=== PATIENT | male | born 1945 | race Caucasian/White ===

== ENCOUNTER → 2016-05-30 | Outpatient (CLI) | payer MEDICARE, OTHER ==
--- NOTE | 2016-05-30 11:34 | FL ---
Modified barium swallow. HISTORY: Dysphagia. Modified barium swallow was performed with the department of speech pathology. The patient was prese nted with various consistencies of barium. There is no evidence for aspiration. Mild single episode of transient penetration with thin liquid ba rium. Full report is to follow from the department of speech pathology. Impression: No evidence for aspiration.
== END | disposition home or self-care (01) ==
LOC: RADFLMAIN 10:54
PROVIDERS: ATTEND Otolaryngology
DX: R13.10 Dysphagia, unspecified (principal)
CPT/HCPCS: 74230

== ENCOUNTER → 2016-06-19 | Outpatient (CLI) | payer MEDICARE, OTHER | END | disposition home or self-care (01) | LOC: PTMAIN 12:54 | PROVIDERS: ATTEND Otolaryngology | DX: J38.01 Paralysis of vocal cords and larynx, unilateral (principal) | CPT/HCPCS: 31579 ==

== ENCOUNTER 2016-08-09 10:06 | Day surgery (SDC) | payer MEDICARE, OTHER ==
[2016-08-07 17:13] VITALS: BMI 33.0
[~2016-08-09 10:06] MED LIST: DEXAMETHASONE SOD PHOSPHATE 10 MG/ML 1 ML VIAL IV ONE; DEXAMETHASONE SOD PHOSPHATE 4 MG/ML 1 ML VIAL IV ONE; FAMOTIDINE 20 MG/2 ML VIAL IV ONE; HYDROmorphone 1 MG/ML 1 ML SYRINGE IVP PRN; LACTATED RINGERS 1,000 ML IV SCH; LIDOCAINE 1% 20 ML VIAL (10MG/ML) FOR IV START INTRADERMA PRN; MIDAZOLAM 2 MG/2 ML VIAL IV PRN; ONDANSETRON 4 MG/2 ML VIAL IVP ONE; Pre Op ABX Message 1 EACH MISC MISCELLANE ONE; SCOPOLAMINE 1.5MG/72HR PATCH TRANSDERM ONE
[2016-08-09 12:55] LABS: Basophils # (A) 0.1 k/uL (0-0.2); Basophils % (A) 1 %; CH 32.8; CHCM 34.5; Eosinophils # (A) 0.1 k/uL (0-0.7); Eosinophils % (A) 1 %; HCT 45.2 % (39.0-53.0); HDW 2.63; HGB 15.3 gm/dL (13.0-17.5); Luc # (Auto) 0.14; Luc % (Auto) 2; Lymphocytes # (A) 0.6 k/uL (1.0-4.8); Lymphocytes % (A) 6 %; MCH 32.2 pg (25.0-35.0); MCHC 33.7 g/dL (31.0-37.0); MCV 95.5 fL (80.0-100.0); Mean Platelet Volume 7.8; Monocytes # (A) 0.5 k/uL (0-1.0); Monocytes % (A) 5 %; Neutrophils # (A) 8.1 k/uL (1.3-7.7); Neutrophils % (A) 86 %; RBC 4.74 m/uL (4.30-5.90); RDW 15.6 % (11.5-15.5); WBC 9.4 k/uL (3.8-10.6); WBC (Perox) 8.66
[2016-08-09 13:15] LABS: Anion Gap 9 mmol/L; Blood Urea Nitrogen 22 mg/dL (9-20); Calcium 9.3 mg/dL (8.4-10.2); Carbon Dioxide 28 mmol/L (22-30); Chloride 102 mmol/L (98-107); Glucose 100 mg/dL (74-99); Non-African American GFR(MDRD) >60 (>60 ml/min/1.73 sqM); Potassium 4.2 mmol/L (3.5-5.1); Sodium 139 mmol/L (137-145)
[2016-08-09] MEDS ORDERED: DEXAMETHASONE SOD PHOS (MDV) 100 MG/10 ML VIAL ONE (13:22)
[2016-08-09] MEDS ORDERED: PROPOFOL 10 MG/ML 20 ML VIAL IV ONE (13:22)
[2016-08-09] MEDS ORDERED: SUCCINYLCHOLINE CHLORIDE 100 MG/5 ML SYR IV ONE (13:22)
[2016-08-09] MEDS ORDERED: LIDOCAINE 1% INJ 10MG/ML (20 ML MDV) ONE (13:22)
[2016-08-09] MEDS ORDERED: MIDAZOLAM 2 MG/2 ML VIAL ONE (13:22)
[2016-08-09] MEDS ORDERED: fentaNYL (PF) 50 MCG/ML 2 ML AMP ONE (13:22)
--- NOTE | 2016-08-09 13:52 | P.OP ---
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 He completed radiotherapy in January 2015. He's had some ongoing hoarseness and although radiologically appears improved he's had some minimal leukoplakia intermittently on the left vocal cord. Operative Findings: There was some mild diffuse white exudate on the left true vocal cord and ventricle which was debrided. There was also some irregularity of the mucosa with erythema of the left true vocal cord and ventricle diffusely and therefore this was debrided and biopsied. Description of Procedure: The patient was brought in the operative suite and placed in a supine position. The patient underwent induction of general anesthesia with oral endotracheal intubation without difficulty. The patient was prepped and draped in the usual aseptic fashion. The tooth guard was placed and direct laryngoscopy was performed with systematic evaluation of the base of tongue vallecula both piriform sinuses post cricoid area and endolarynx. With the larynx in good visualization the laryngoscope was placed in suspension and the microscope was brought into position to evaluate the vocal cords. The white exudate overlying the left true vocal cord was first debrided with suction. Deep to this was some superficial appearing erythematous irregular mucosa in the ventricle and overlying the left true vocal cord and this was debrided with microcup forceps multiple small biopsies taken. Hemostasis was gained spontaneously. The patient was then allowed to emerge from general anesthesia having tolerated procedure well was extended the operating suite and transferred to postop recovery area in satisfactory condition.
[2016-08-09 14:08] VITALS: TEMP 97.2
[2016-08-09 14:36] VITALS: RESP 18
[2016-08-09 14:51] VITALS: BP 153/70; PULSE 63
== END 2016-08-09 15:07 | disposition home or self-care (01) ==
LOC: OR 10:06
PROVIDERS: ATTEND Otolaryngology
DX: J38.3 Other diseases of vocal cords (principal); B37.89 Other sites of candidiasis; Z85.21 Personal history of malignant neoplasm of larynx; K21.9 Gastro-esophageal reflux disease without esophagitis; I25.10 Atherosclerotic heart disease of native coronary artery without angina pectoris; I50.9 Heart failure, unspecified; I11.0 Hypertensive heart disease with heart failure; Z87.891 Personal history of nicotine dependence; J43.8 Other emphysema; E78.5 Hyperlipidemia, unspecified; H91.8X9 Other specified hearing loss, unspecified ear; E78.00 Pure hypercholesterolemia, unspecified; Z79.891 Long term (current) use of opiate analgesic; Z79.51 Long term (current) use of inhaled steroids; Z79.52 Long term (current) use of systemic steroids; Z79.899 Other long term (current) drug therapy; Z79.2 Long term (current) use of antibiotics; Z88.1 Allergy status to other antibiotic agents
CPT/HCPCS: 31535; 93005; 88305; 80048; 85025; J2250; J2001; J3010; J1100; J0330; J2704

== ENCOUNTER → 2017-07-18 | Outpatient (CLI) | payer MEDICARE, OTHER ==
[2017-07-18 16:04] LABS: HCT 41.5 % (39.0-53.0); HGB 14.2 gm/dL (13.0-17.5); MCH 32.1 pg (25.0-35.0); MCHC 34.2 g/dL (31.0-37.0); MCV 93.9 fL (80.0-100.0); Mean Platelet Volume 7.5; Platelet Count 161 k/uL (150-450); RBC 4.42 m/uL (4.30-5.90); RDW 15.6 % (11.5-15.5); WBC 10.8 k/uL (3.8-10.6)
[2017-07-18 16:19] LABS: Albumin 4.1 g/dL (3.5-5.0); Potassium 3.7 mmol/L (3.5-5.1); Total Bilirubin 0.9 mg/dL (0.2-1.3); Total Protein 6.7 g/dL (6.3-8.2)
== END ==
LOC: LABWHC1 15:15
PROVIDERS: ATTEND Thoracic Surgery (Cardiothoracic Vascular Surgery)
DX: E63.8 Other specified nutritional deficiencies (principal)
CPT/HCPCS: 36415; 80053; 84134; 85027

== ENCOUNTER 2017-07-30 07:17 | Day surgery (SDC) | payer MEDICARE, OTHER ==
[~2017-07-30 07:17] MED LIST changes: -DEXAMETHASONE SOD PHOSPHATE 4 MG/ML 1 ML VIAL IV ONE; -FAMOTIDINE 20 MG/2 ML VIAL IV ONE; +HYDROmorphone 0.5 MG/0.5 ML SYRINGE IVP PRN; -HYDROmorphone 1 MG/ML 1 ML SYRINGE IVP PRN; -LIDOCAINE 1% 20 ML VIAL (10MG/ML) FOR IV START INTRADERMA PRN; -MIDAZOLAM 2 MG/2 ML VIAL IV PRN; -Pre Op ABX Message 1 EACH MISC MISCELLANE ONE; -SCOPOLAMINE 1.5MG/72HR PATCH TRANSDERM ONE
[2017-07-30 07:45] VITALS: RESP 16; TEMP 98.1
[2017-07-30] MEDS ORDERED: LIDOCAINE 1% 20 ML VIAL (10MG/ML) FOR IV START INTRADERMA ONE (07:51)
[2017-07-30 07:52] LABS: Glucose,Whole Blood 98 mg/dL (75-99)
[2017-07-30] MEDS: ceFAZolin IN SWFI 2 GM/20 ML SYRINGE IVP ONE ×2 (08:23→08:37)
[2017-07-30] MEDS ORDERED: LIDOCAINE 1% INJ 10MG/ML (20 ML MDV) ONE (08:35)
[2017-07-30] MEDS ORDERED: PROPOFOL 10 MG/ML 20 ML VIAL IV ONE (08:35)
[2017-07-30] MEDS ORDERED: MIDAZOLAM 2 MG/2 ML VIAL ONE (08:35)
--- NOTE | 2017-07-30 09:07 | P.PCN ---
Date of Procedure: 07/30/17 Preoperative Diagnosis: Neuropathic ulcer right second toe Postoperative Diagnosis: Same Procedure(s) Performed: Amputation right second toe through proximal phalanx Anesthesia: MAC Surgeon: Shant Nicolas Estimated Blood Loss (ml): 20 Pathology: other (Second toe for cultures only) Condition: stable Disposition: PACU Indications for Procedure: Patient has an ulcer on the plantar aspect of his right second toe which exposes a large portion of the middle phalanx Operative Findings: Proximal tissues appeared healthy and with good blood supply. Description of Procedure: With the patient spine position, under benefit of IV sedation, we prepped and draped sterile fashion. We left a fairly substantial dorsal flap on the toe but excise the ulcer which was on the proximal plantar aspect of the second toe. We divided the proximal phalanx at this line with a bone cutter and excised the toe. Hemostasis was accomplished with electrocautery. We irrigated with saline. We took the bone well above the soft tissue line. After irrigated with saline we fashioned the flap to fit the incision. The incision was closed with 4-0 nylon. Sterile dressings were applied. The patient tolerated the procedure well and was taken recovery area in stable condition.
[2017-07-30 09:27] VITALS: BP 145/75; PULSE 74
== END 2017-07-30 09:51 | disposition home or self-care (01) ==
LOC: OR 07:17
PROVIDERS: ATTEND Thoracic Surgery (Cardiothoracic Vascular Surgery)
DX: L97.514 Non-pressure chronic ulcer of other part of right foot with necrosis of bone (principal); M86.9 Osteomyelitis, unspecified; B95.62 Methicillin resistant Staphylococcus aureus infection as the cause of diseases classified elsewhere; G62.9 Polyneuropathy, unspecified; J44.9 Chronic obstructive pulmonary disease, unspecified; I11.0 Hypertensive heart disease with heart failure; I50.9 Heart failure, unspecified; K21.9 Gastro-esophageal reflux disease without esophagitis; H91.90 Unspecified hearing loss, unspecified ear; E78.5 Hyperlipidemia, unspecified; M19.90 Unspecified osteoarthritis, unspecified site; G47.33 Obstructive sleep apnea (adult) (pediatric); N40.0 Benign prostatic hyperplasia without lower urinary tract symptoms; M10.9 Gout, unspecified; I83.90 Asymptomatic varicose veins of unspecified lower extremity; Z99.89 Dependence on other enabling machines and devices; Z96.652 Presence of left artificial knee joint; Z79.51 Long term (current) use of inhaled steroids; Z79.52 Long term (current) use of systemic steroids; Z79.899 Other long term (current) drug therapy; Z85.21 Personal history of malignant neoplasm of larynx; Z92.3 Personal history of irradiation; Z87.891 Personal history of nicotine dependence; Z88.1 Allergy status to other antibiotic agents
CPT/HCPCS: 88305; 88311; 28825; J2250; J1100; J2405; J2001; J2704; J0690

== ENCOUNTER 2017-09-19 10:58 | Inpatient (IN) | payer MEDICARE, OTHER ==
[2017-09-19] MEDS ORDERED: SODIUM CHLORIDE 0.9% 1,000 ML IV STA (11:12)
[2017-09-19] MEDS ORDERED: MORPHINE SULFATE 4 MG/ML SYRINGE IV STA (11:12)
--- NOTE | 2017-09-19 11:20 | ED ---
General Adult HPI - General Chief complaint: Weakness Stated complaint: Weakness Time Seen by Provider: 09/19/17 11:01 Source: patient, EMS, RN notes reviewed Mode of arrival: EMS Limitations: no limitations - History of Present Illness Initial comments: Patient is a pleasant 71-year-old male presenting to the emergency department with weakness. Patient states he was unable to ambulate today. Patient is unclear why. Patient feels weak all over, more so on the legs. Patient has had right hip discomfort over the past couple of weeks. Patient is planning to have x-rays done of his right hip. Discomfort is positional. No fevers. Patient also has chronic lower back pain and chronic neck pain and chronic right knee problems. Patient has not noticed any isolated area of weakness. Patient does not feel confused. - Related Data Home Medications Medication Instructions Recorded Confirmed Albuterol Sulfate [Proventil Hfa] 3 puff INHALATION RT-BID 09/16/14 09/19/17 Allopurinol [Zyloprim] 300 mg PO QAM 09/16/14 09/19/17 Atorvastatin [Lipitor] 10 mg PO HS 09/16/14 09/19/17 B Complex-Vit C-Vit E-Zinc [Z-Bec] 1 tab PO DAILY 09/16/14 09/19/17 Furosemide [Lasix] 40 mg PO BID 09/16/14 09/19/17 Spironolactone [Aldactone] 25 mg PO QAM 09/16/14 09/19/17 Tamsulosin HCl [Flomax] 0.4 mg PO HS 09/16/14 09/19/17 Temazepam [Restoril] 30 mg PO HS PRN 09/16/14 09/19/17 amLODIPine [Norvasc] 5 mg PO QAM 09/16/14 09/19/17 hydrALAZINE HCL [Apresoline] 100 mg PO TID 09/16/14 09/19/17 predniSONE 5 mg PO QAM 09/16/14 09/19/17 Omeprazole [PriLOSEC] 40 mg PO QAM 08/07/16 09/19/17 Budesonide/Formoterol Fumarate 1 puff INHALATION RT-BID 09/19/17 09/19/17 [Symbicort 160-4.5 Mcg Inhaler] Metolazone [Zaroxolyn] 5 mg PO DAILY PRN 09/19/17 09/19/17 Tiotropium 18 Mcg/Puff [Spiriva] 1 cap INHALATION RT-DAILY 09/19/17 09/19/17 diphenhydrAMINE [Benadryl] 50 mg PO HS 09/19/17 09/19/17 Allergies Allergy/AdvReac Type Severity Reaction Status Date / Time tobramycin Allergy Unknown Rash/Hives, Verified 09/19/17 11:17 Itching Review of Systems ROS Statement: Those systems with pertinent positive or pertinent negative responses have been documented in the HPI. ROS Other: All systems not noted in ROS Statement are negative. Constitutional: Denies: fever Eyes: Denies: eye pain ENT: Denies: ear pain Respiratory: Denies: dyspnea Cardiovascular: Denies: chest pain Endocrine: Denies: fatigue Gastrointestinal: Denies: abdominal pain Genitourinary: Denies: dysuria Musculoskeletal: Reports: as per HPI, back pain (Chronic), arthralgia Skin: Denies: rash Neurological: Reports: weakness (Generalized), abnormal gait. Denies: headache , confusion Past Medical History Past Medical History: Cancer, Heart Failure, COPD, GERD/Reflux, Hearing Disorder / Deafness, Hyperlipidemia, Hypertension, Osteoarthritis (OA), Skin Disorder, Sleep Apnea/CPAP/BIPAP Additional Past Medical History / Comment(s): CURRENT: PATIENT AT [facility] FOR TX OF WOUND ON RIGHT SECOND TOE ([facility]) AND ALSO HAS BEEN TO DR. CELIS FOR LOWER BACK PAIN WITH WEAKNESS IN LEGS (PER SPOUSE). USES WALKER AND CANE. C-PAP MACHINE. (C-DIFF AFTER RUPTURED APPENDIX). ENLARGED PROSTATE. GOUT. BRUISES ON ARMS, BRUISES EASILY. VOICE HOARSE; HX CA VOCAL CORD 2014; HAD 30 RADIATION TX. VARICOSE VEINS, wound 2nd right toe History of Any Multi-Drug Resistant Organisms: MRSA Date of last positivie culture/infection: 05/31/17 MDRO Source:: RIGHT SECOND TOE Past Surgical History: Appendectomy, Joint Replacement, Orthopedic Surgery Additional Past Surgical History / Comment(s): RUPTURED APPENDIX. RT ROTATOR CUFF REPAIR, LT TOTAL KNEE. HX VOCAL CORD BIOPSY. Past Anesthesia/Blood Transfusion Reactions: No Reported Reaction Past Psychological History: No Psychological Hx Reported Smoking Status: Former smoker Past Alcohol Use History: Occasional Past Drug Use History: None Reported - Past Family History Father Family Medical History: Cancer Additional Family Medical History / Comment(s): STOMACH CANCER General Exam Limitations: no limitations General appearance: alert, in no apparent distress Head exam: Present: atraumatic Eye exam: Present: normal appearance ENT exam: Present: normal oropharynx Neck exam: Present: normal inspection Respiratory exam: Present: normal lung sounds bilaterally Cardiovascular Exam: Present: regular rate, normal rhythm GI/Abdominal exam: Present: soft. Absent: tenderness Extremities exam: Present: tenderness (Right anterior hip), pedal edema, other ( Some discomfort with range of motion of the right hip. Cap refill less than 2 seconds bilateral.) Back exam: Present: normal inspection. Absent: vertebral tenderness Neurological exam: Present: alert, oriented X3, other (Difficulty lifting right leg off the bed however this is complicated by right hip discomfort.) Expanded Sensory exam: Lower Extremity Light Touch: Normal Motor strength exam: RUE: 5, LUE: 5, RLE: 3 (Complicated by right hip discomfort ), LLE: 5 Eye Response: (4) open spontaneously Motor Response: (6) obeys commands Verbal Response: (5) oriented Psychiatric exam: Present: normal affect, normal mood Skin exam: Present: normal color Course Vital Signs 09/19/17 09/19/17 09/19/17 11:12 12:06 13:35 Temperature 97.9 F Pulse Rate 82 75 Respiratory 20 18 18 Rate Blood Pressure 161/74 160/69 O2 Sat by Pulse 97 98 Oximetry - Reevaluation(s) Reevaluation #1: 09/19/17 14:24 Patient with difficulty ambulating on the right leg secondary to right hip pain. Dr. Avery has been paged. 09/19/17 14:32 Case discussed with practitioner Celsa Montes De Oca, who will admit for Dr. Mari. She does request consult with medicine as well as computed tomography scan of the hip. Patient and family are updated. Patient had previously refused computed tomography scan of the head. Upon attempted inhalation with difficulty secondary to right hip pain, patient and family are more confident that walking problems are related to the hip. EKG Findings - EKG Comments: EKG Findings:: Sinus rhythm at 77. MO 148. QRS 88. QT 410. QTc 463. Normal axis. Normal QRS. Nonspecific ST-T. PaC present. Medical Decision Making - Lab Data Result diagrams: 09/19/17 12:00 09/19/17 12:00 Lab Results 09/19/17 09/19/17 09/19/17 Range/Units 12:00 12:00 12:00 WBC 10.1 (3.8-10.6) k/uL RBC 4.17 L (4.30-5.90) m/uL Hgb 12.9 L (13.0-17.5) gm/dL Hct 39.1 (39.0-53.0) % MCV 93.7 (80.0-100.0) fL MCH 31.0 (25.0-35.0) pg MCHC 33.0 (31.0-37.0) g/dL RDW 16.0 H (11.5-15.5) % Plt Count 198 (150-450) k/uL Neutrophils % 85 % Lymphocytes % 5 % Monocytes % 6 % Eosinophils % 2 % Basophils % 0 % Neutrophils # 8.7 H (1.3-7.7) k/uL Lymphocytes # 0.5 L (1.0-4.8) k/uL Monocytes # 0.6 (0-1.0) k/uL Eosinophils # 0.2 (0-0.7) k/uL Basophils # 0.0 (0-0.2) k/uL PT (9.0-12.0) sec INR (<1.2) APTT (22.0-30.0) sec Sodium 135 L (137-145) mmol/L Potassium 3.8 (3.5-5.1) mmol/L Chloride 95 L (98-107) mmol/L Carbon Dioxide 32 H (22-30) mmol/L Anion Gap 8 mmol/L BUN 27 H (9-20) mg/dL Creatinine 0.92 (0.66-1.25) mg/dL Est GFR (CKD-EPI)AfAm >90 (>60 ml/min/1.73 sqM) Est GFR (CKD-EPI)NonAf 82 (>60 ml/min/1.73 sqM) Glucose 112 H (74-99) mg/dL Plasma Lactic Acid [place] (0.7-2.0) mmol/L Calcium 9.0 (8.4-10.2) mg/dL Magnesium 1.8 (1.6-2.3) mg/dL Total Bilirubin 0.6 (0.2-1.3) mg/dL AST 25 (17-59) U/L ALT 35 (21-72) U/L Alkaline Phosphatase 122 (38-126) U/L Total Creatine Kinase 34 L (55-170) U/L CK-MB (CK-2) 1.3 (0.0-2.4) ng/mL CK-MB (CK-2) Rel Index 3.8 Troponin I <0.012 (0.000-0.034) ng/mL Total Protein 6.3 (6.3-8.2) g/dL Albumin 3.7 (3.5-5.0) g/dL TSH 3.820 (0.465-4.680) mIU/L Urine Color Urine Appearance (Clear) Urine pH (5.0-8.0) Ur Specific [place] (1.001-1.035) Urine Protein (Negative) Urine Glucose (UA) (Negative) Urine Ketones (Negative) Urine Blood (Negative) Urine Nitrite (Negative) Urine Bilirubin (Negative) Urine Urobilinogen (<2.0) mg/dL Ur Leukocyte Esterase (Negative) 09/19/17 09/19/17 09/19/17 Range/Units 12:00 12:00 13:32 WBC (3.8-10.6) k/uL RBC (4.30-5.90) m/uL Hgb (13.0-17.5) gm/dL Hct (39.0-53.0) % MCV (80.0-100.0) fL MCH (25.0-35.0) pg MCHC (31.0-37.0) g/dL RDW (11.5-15.5) % Plt Count (150-450) k/uL Neutrophils % % Lymphocytes % % Monocytes % % Eosinophils % % Basophils % % Neutrophils # (1.3-7.7) k/uL Lymphocytes # (1.0-4.8) k/uL Monocytes # (0-1.0) k/uL Eosinophils # (0-0.7) k/uL Basophils # (0-0.2) k/uL PT 9.8 (9.0-12.0) sec INR 1.0 (<1.2) APTT 24.7 (22.0-30.0) sec Sodium (137-145) mmol/L Potassium (3.5-5.1) mmol/L Chloride (98-107) mmol/L Carbon Dioxide (22-30) mmol/L Anion Gap mmol/L BUN (9-20) mg/dL Creatinine (0.66-1.25) mg/dL Est GFR (CKD-EPI)AfAm (>60 ml/min/1.73 sqM) Est GFR (CKD-EPI)NonAf (>60 ml/min/1.73 sqM) Glucose (74-99) mg/dL Plasma Lactic Acid [place] 1.6 (0.7-2.0) mmol/L Calcium (8.4-10.2) mg/dL Magnesium (1.6-2.3) mg/dL Total Bilirubin (0.2-1.3) mg/dL AST (17-59) U/L ALT (21-72) U/L Alkaline Phosphatase (38-126) U/L Total Creatine Kinase (55-170) U/L CK-MB (CK-2) (0.0-2.4) ng/mL CK-MB (CK-2) Rel Index Troponin I (0.000-0.034) ng/mL Total Protein (6.3-8.2) g/dL Albumin (3.5-5.0) g/dL TSH (0.465-4.680) mIU/L Urine Color Yellow Urine Appearance Clear (Clear) Urine pH 7.5 (5.0-8.0) Ur Specific [place] 1.010 (1.001-1.035) Urine Protein Negative (Negative) Urine Glucose (UA) Negative (Negative) Urine Ketones Negative (Negative) Urine Blood Negative (Negative) Urine Nitrite Negative (Negative) Urine Bilirubin Negative (Negative) Urine Urobilinogen <2.0 (<2.0) mg/dL Ur Leukocyte Esterase Negative (Negative) - Radiology Data Radiology results: image reviewed (X-ray the right hip and pelvis shows end- stage right hip osteo-arthritis with collapse of the weightbearing portion of the femoral head and secondary superior lateral joint subluxation. Lumbar spine x-ray shows moderate disc/and played degenerative changes. Facet arthropathy. Grade 1 spondylolysis. Two-view chest x-ray shows no acute process.) Disposition Clinical Impression: Osteoarthritis of hip Disposition: ADMITTED IP TO THIS HOSP Is patient prescribed a controlled substance at d/c from ED?: No Decision Time: 14:34
[2017-09-19 12:20] LABS: Basophils % (A) 0 %; Eosinophils # (A) 0.2 k/uL (0-0.7); Eosinophils % (A) 2 %; HCT 39.1 % (39.0-53.0); HGB 12.9 gm/dL (13.0-17.5); Lymphocytes # (A) 0.5 k/uL (1.0-4.8); Lymphocytes % (A) 5 %; MCV 93.7 fL (80.0-100.0); Mean Platelet Volume 7.8; Monocytes # (A) 0.6 k/uL (0-1.0); Monocytes % (A) 6 %; Neutrophils # (A) 8.7 k/uL (1.3-7.7); Neutrophils % (A) 85 %; Platelet Count 198 k/uL (150-450); RBC 4.17 m/uL (4.30-5.90); WBC 10.1 k/uL (3.8-10.6)
[2017-09-19 12:32] LABS: Partial Thromboplastin Time 24.7 sec (22.0-30.0); Prothrombin Time 9.8 sec (9.0-12.0)
[2017-09-19 12:33] LABS: ALT 35 U/L (21-72); AST 25 U/L (17-59); Albumin 3.7 g/dL (3.5-5.0); Alkaline Phosphatase 122 U/L (38-126); Anion Gap 8 mmol/L; Blood Urea Nitrogen 27 mg/dL (9-20); Carbon Dioxide 32 mmol/L (22-30); Chloride 95 mmol/L (98-107); Glucose 112 mg/dL (74-99); Magnesium 1.8 mg/dL (1.6-2.3); Potassium 3.8 mmol/L (3.5-5.1); Sodium 135 mmol/L (137-145); Total Bilirubin 0.6 mg/dL (0.2-1.3); Total Protein 6.3 g/dL (6.3-8.2)
[2017-09-19 12:44] LABS: Creatine Kinase 34 U/L (55-170)
[2017-09-19 12:55] LABS: Creatine Kinase MB 1.3 ng/mL (0.0-2.4); Troponin I <0.012 ng/mL (0.000-0.034)
--- NOTE | 2017-09-19 13:24 | XR ---
EXAMINATION TYPE: XR lumbar spine 2 or 3V DATE OF EXAM: 09/19/2017 COMPARISON: NONE HISTORY: 71 year-old male chronic low back pain TECHNIQUE: 3 views FINDINGS: 5 lumbar type vertebral bodies. Vertebral body heights are maintained. There is vascular disease. Adv anced hypertrophic facet arthropathy throughout. Moderate multilevel disc/endplate degenerative frazier e. Multilevel advanced hypertrophic facet arthropathy. Grade 1 retrolisthesis are present from L1 thr ough L3 levels and also at L4-L5. Grade 1 anterolisthesis is present at L3-L4. Calcified abdominal ao rta. Upper abdominal aorta appears aneurysmal at 3.4 cm. There is fusiform dilatation of the distal a bdominal aorta at 3.4 cm. Baastrup's disease. IMPRESSION: 1. No vertebral compression collapse. 2. Moderate multilevel disc/endplate degenerative change. 3. Advanced hypertrophic facet arthropathy with grade 1 spondylolisthesis throughout the lumbar spine . 4. 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 5. Baastrup's disease.
--- NOTE | 2017-09-19 13:25 | XR ---
EXAMINATION TYPE: XR chest 2V DATE OF EXAM: 09/19/2017 COMPARISON: None HISTORY: 71-year-old male with weakness TECHNIQUE: AP and lateral views FINDINGS: Heart normal size. Aorta and pulmonary vasculature within normal limits. Strandy atelectasis at the l eft base. No consolidation or pleural effusion. IMPRESSION: Strandy left basilar atelectasis. Otherwise, no acute process seen.
--- NOTE | 2017-09-19 13:27 | XR ---
EXAMINATION TYPE: AP view pelvis and 2 views right hip DATE OF EXAM: 09/19/2017 COMPARISON: NONE HISTORY: 71-year-old male pain for 2 days FINDINGS: There is end-stage degenerative change at the right hip. There is collapse of the weightbearing aspec t of the femoral head with [id number] articulation and resultant supralateral joint subluxation. Mo derate degenerative change at the left hip with joint space narrowing and marginal spurring. IMPRESSION: End-stage right hip osteoarthrosis with collapse of the weightbearing portion of the femoral head and secondary superolateral joint subluxation. Moderate OA at the left hip.
[2017-09-19 13:45] LABS: Appearance,Urine Clear (Clear); Bilirubin,Urine Negative (Negative); Blood,Urine Negative (Negative); Color,Urine Yellow; Glucose,Urine (UA) Negative (Negative); Ketones,Urine Negative (Negative); Leukocyte Esterase,Urine Negative (Negative); Nitrite,Urine Negative (Negative); PH, Urine 7.5 (5.0-8.0); Protein,Urine Negative (Negative); Urobilinogen,Urine <2.0 mg/dL (<2.0)
[2017-09-19] MEDS ORDERED: traMADol 50 MG TAB PO PRN (14:35)
[2017-09-19] MEDS ORDERED: NALOXONE 0.4 MG/ML 1 ML VIAL IV PRN (14:35)
[2017-09-19] MEDS ORDERED: ACETAMINOPHEN TAB 325 MG TAB PO PRN (14:35)
--- NOTE | 2017-09-19 15:24 | CT ---
EXAMINATION TYPE: CT hip RT wo con DATE OF EXAM: 09/19/2017 COMPARISON: Pelvic and right hip x-ray from earlier today HISTORY: Right hip pain CT DLP: 724.2 mGycm Automated exposure control for dose reduction was used. FINDINGS: Advanced degenerative change right hip is redemonstrated with marked superior joint space loss, there is [id number] formation with collapse of the superior portion of the femoral head. A few small oss ific fragments laterally are identified. There is linear lucency suggesting nondisplaced acute fragme ntation or fragmentation of the superior portion of the femoral head likely product of advanced degen erative change seen best on axial images. Superior lateral subluxation of femoral head is redemonstra haley on coronal images presumed chronic. Remainder of pelvis and proximal femur shows no additional fracture. Demineralization is present. Vis ualized bowel and bladder are felt within normal limits though partially imaged. There is moderate to severe calcified plaque of the visualized distal external iliac artery and common femoral artery ext ending into superficial and deep femoral arteries. IMPRESSION: CT FINDINGS ARE CONSISTENT WITH END-STAGE OSTEOARTHROPATHY AND ASSOCIATED VERTICAL ACUTE STRESS FRACT URE THROUGH THE SUPERIOR FEMORAL HEAD SUSPECTED ON RADIOGRAPHS. ORTHOPEDIC SURGICAL FOLLOW-UP IS R ECOMMENDED.
[2017-09-19] MEDS ORDERED: METOLAZONE 5 MG TAB PO PRN (16:46)
[2017-09-19] MEDS ORDERED: TEMAZEPAM 30 MG CAP PO PRN (16:46)
[2017-09-19] MEDS: SODIUM CHLORIDE 0.9% 1,000 ML IV SCH (17:13)
[2017-09-19] MEDS: FUROSEMIDE 40 MG TAB PO SCH (17:23)
--- NOTE | 2017-09-19 18:49 | P.CONS ---
History of Present Illness - Reason for Consult Consult date: 09/19/17 - History of Present Illness The 1 year old male patient of Dr. 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 Sparks, history of hyperlipidemia, hypertension, history of lower extremity edema though patient denies history of heart failure, history of osteoarthritis, sleep apnea wears CPAP at night presents in with the acute onset of lower extremity weakness associated with urinary incontinence that started today. According to the patient she she notices patient walking on the toes on the right hip for the past 6 weeks but patient also underwent toe amputation on the right second toe by Dr. Moulton and was nonweightbearing for 3 weeks. Patient was wheelchair bound couple of weeks ago and has started using cane and walker for the past 3 weeks. He has been sleeping in the chair as he is unable to lay flat due to the hip pain. Patient did not seek any medical attention for the hip pain but he was concerned about his neck pain for which he underwent MRI of the neck which showed spinal cord compression at the level of C5-C6 and C7 and was planning to undergo surgery under Dr. Moctezuma and was due for pulmonary and medical clearance by Dr. Reynoso for the surgery to be performed in the neck. Since the hip pain got worse and then patient was unable to put weight on his leg patient's brought the patient to the ER. Vitals were stable. Pulse 75 , respiratory rate 18, blood pressure 160/69 saturating on 98% on 2 L. X-ray and lumbar x-ray was obtained that suggested end-stage right hip osteoarthrosis or collapse of the weightbearing portion of the femoral head and secondary super only true joint subluxation moderate osteoarthritis of the left hip was seen. Followed by hip CT that suggested end-stage osteoarthropathy with associated vertical acute stress fracture to the superior femoral head as suspected on radiograph. Lumbar x-ray suggested moderate multilevel disc and endplate degenerative disc with past hypertrophic face arthropathy with grade 1 spondylolisthesis throughout the spine. Aneurysm of the abdominal aorta seen at 3.4 cm . The patient is admitted for orthopedic surgery. Review of Systems Constitutional: Denies chills, Denies fever, Denies lethargy, Denies malaise, Denies poor appetite, Denies weakness, Denies weight loss Eyes: denies decreased vision, denies diplopia, denies discharge, denies pain Ears: deny: decreased hearing Ears, nose, mouth and throat: Denies dental pain, Denies headache, Denies nasal discharge, Denies nose pain Cardiovascular: Denies chest pain, Denies decreased exercise tolerance, endorses edema, Denies high blood pressure, Denies irregular heart beat, Denies palpitations, Denies paroxysmal nocturnal dyspnea, Denies rapid heart beat, Denies shortness of breath Respiratory: Endorses congestion, endorses chronic cough, Denies cough with sputum, Denies dyspnea, Denies home oxygen, Denies wheezing Gastrointestinal: Denies abdominal pain, Denies change in bowel habits, Denies coffee ground emesis, Denies early satiety, Denies excessive gas, Denies heartburn, Denies hematemesis, Denies hematochezia, Denies loss of appetite, Denies nausea, Denies vomiting Genitourinary: Denies dysuria, Denies flank pain, Denies kidney stones, Denies menorrhagia, Denies urgency, Denies urinary frequency Musculoskeletal: Endorses gait dysfunction, limitation of motion, his muscle cramps in the right hip unable irritate to put weight on it and loss of sensation in the bilateral lower extremities Integumentary: Denies rash, Denies wounds, Denies brittle nails, Denies change in hair/nails, Denies darkening of skin Neurological: Endorses balance difficulties, Denies change in speech, Denies double vision,Denies loss of vision, endorses motor disturbance, endorses numbness, Denies paralysis, endorses paresthesias, Denies seizures Psychiatric: Denies anxiety, Denies depression Endocrine: Denies excessive sweating, Denies excessive thirst, Denies high blood sugars, Denies palpitations Hematologic/Lymphatic: Denies easy bruising, Denies lymphadenopathy Past Medical History Past Medical History: Cancer, COPD, GERD/Reflux, Hearing Disorder / Deafness, Hyperlipidemia, Hypertension, Osteoarthritis (OA), Skin Disorder, Sleep Apnea/ CPAP/BIPAP Additional Past Medical History / Comment(s): CURRENT: PATIENT AT [facility] FOR TX OF WOUND ON RIGHT SECOND TOE ([facility]) AND ALSO HAS BEEN TO DR. CELIS FOR LOWER BACK PAIN WITH WEAKNESS IN LEGS (PER SPOUSE). USES WALKER AND CANE. C-PAP MACHINE. hx of C-DIFF AFTER RUPTURED APPENDIXapprox 2012 ENLARGED PROSTATE. GOUT. BRUISES ON ARMS, BRUISES EASILY. VOICE HOARSE; HX CA VOCAL CORD 2014; HAD 33 RADIATION [place]. VARICOSE VEINS, wound 2nd right toe/amp History of Any Multi-Drug Resistant Organisms: MRSA Year Discovered:: 07-25-17 MDRO Source:: RIGHT SECOND TOE Past Surgical History: Appendectomy, Joint Replacement, Orthopedic Surgery Additional Past Surgical History / Comment(s): RUPTURED APPENDIX. RT ROTATOR CUFF REPAIR, LT TOTAL KNEE. HX VOCAL CORD BIOPSY. Past Anesthesia/Blood Transfusion Reactions: No Reported Reaction Past Psychological History: No Psychological Hx Reported Smoking Status: Former smoker Past Alcohol Use History: Occasional Additional Past Alcohol Use History / Comment(s): STARTED SMOKING AGE 13, QUIT 2004.smoked 2 ppd. DRINKS 6 beers per week Past Drug Use History: None Reported - Past Family History Mother Additional Family Medical History / Comment(s): heart disease, mitral valve stenosis Father Family Medical History: Cancer Additional Family Medical History / Comment(s): STOMACH CANCER Medications and Allergies Home Medications Medication Instructions Recorded Confirmed Type Albuterol Sulfate [Proventil Hfa] 3 puff INHALATION RT-BID 09/16/14 09/19/17 History Allopurinol [Zyloprim] 300 mg PO QAM 09/16/14 09/19/17 History Atorvastatin [Lipitor] 10 mg PO HS 09/16/14 09/19/17 History B Complex-Vit C-Vit E-Zinc [Z-Bec] 1 tab PO DAILY 09/16/14 09/19/17 History Furosemide [Lasix] 40 mg PO BID 09/16/14 09/19/17 History Spironolactone [Aldactone] 25 mg PO QAM 09/16/14 09/19/17 History Tamsulosin HCl [Flomax] 0.4 mg PO HS 09/16/14 09/19/17 History Temazepam [Restoril] 30 mg PO HS PRN 09/16/14 09/19/17 History amLODIPine [Norvasc] 5 mg PO QAM 09/16/14 09/19/17 History hydrALAZINE HCL [Apresoline] 100 mg PO TID 09/16/14 09/19/17 History predniSONE 5 mg PO QAM 09/16/14 09/19/17 History Omeprazole [PriLOSEC] 40 mg PO QAM 08/07/16 09/19/17 History Budesonide/Formoterol Fumarate 1 puff INHALATION RT-BID 09/19/17 09/19/17 History [Symbicort 160-4.5 Mcg Inhaler] Metolazone [Zaroxolyn] 5 mg PO DAILY PRN 09/19/17 09/19/17 History Tiotropium 18 Mcg/Puff [Spiriva] 1 cap INHALATION RT-DAILY 09/19/17 09/19/17 History diphenhydrAMINE [Benadryl] 50 mg PO HS 09/19/17 09/19/17 History Allergies Allergy/AdvReac Type Severity Reaction Status Date / Time tobramycin Allergy Unknown Rash/Hives, Verified 09/19/17 11:17 Itching Physical Exam Vitals: Vital Signs Temp Pulse Resp BP Pulse Ox 09/19/17 15:34 78 18 161/75 98 09/19/17 13:35 75 18 160/69 98 09/19/17 12:06 18 09/19/17 11:12 97.9 F 82 20 161/74 97 Intake and Output 09/19/17 09/19/17 09/19/17 06:59 14:59 22:59 Other: Voiding Method Urinal Weight 97.069 kg - Constitutional General appearance: cooperative, no acute distress, obese - EENT Eyes: anicteric sclerae, PERRLA, normal appearance ENT: hearing grossly normal - Neck Neck: no lymphadenopathy, normal ROM, no other, no rigidity, no stridor, no thyromegaly - Respiratory Respiratory: bilateral: Crackles at the bases otherwise clear to auscultate - Cardiovascular Rhythm: regular Heart sounds: normal: S1, S2 Abnormal Heart Sounds: no systolic murmur, no diastolic murmur, no rub, no S3 Gallop, no S4 Gallop, no click, bilateral 1+ pitting edema - Gastrointestinal General gastrointestinal: normal bowel sounds, soft - Integumentary Integumentary: no rash bilateral lower extremity redness and edema positive peripheral pulses 2+ - Neurologic Neurologic: CNII-XII intact - Musculoskeletal Musculoskeletal: Unable to be put any weight on the right lower extremity. Right lower extremity in flexion 30 due to extreme pain. Pain on rotation of the hip. - Psychiatric Psychiatric: A&O x's 3, appropriate affect Results CBC & Chem 7: 08/08/18 12:00 09/19/17 12:00 Labs: Abnormal Lab Results - Last 24 Hours (Table) 09/19/17 09/19/17 09/19/17 Range/Units 12:00 12:00 12:00 RBC 4.17 L (4.30-5.90) m/uL Hgb 12.9 L (13.0-17.5) gm/dL RDW 16.0 H (11.5-15.5) % Neutrophils # 8.7 H (1.3-7.7) k/uL Lymphocytes # 0.5 L (1.0-4.8) k/uL Sodium 135 L (137-145) mmol/L Chloride 95 L (98-107) mmol/L Carbon Dioxide 32 H (22-30) mmol/L BUN 27 H (9-20) mg/dL Glucose 112 H (74-99) mg/dL Total Creatine Kinase 34 L (55-170) U/L Assessment and Plan Plan: #1 End-stage osteoarthropathy with vertical acute stress fracture through the superior femoral head. Continue pain control with morphine 4 mg every 4 hours as needed. Patient has significant congestion and lower extremity edema on examination. Hg suggestive of some nonspecific ST abnormality with abberant conduction. Repeat EKG. Need further evaluation with echocardiogram. Patient has history of COPD had no lung function doesn't test done for past 1 year. Consult with cardiology and pulmonary for clearance. Patient denies any history of heart failure but does take metolazone and Lasix at home for lower extremity edema. BNP ordered. GI prophylaxis with Protonix 40 mg. Patient denies having stress test done for the past 10 years. Less than 4 MET on functional activity due to pain in the hip. Patient does have history of peripheral vascular disease and COPD that and increases his risk to 1% for nonfatal myocardial infarction and nonfatal cardiac arrest. Awaiting cardiology and pulmonary clearance. #2 gout - continue allopurinol 300 mg hold colchicine continue prednisone 5 mg by mouth daily #3 hypertension - continue amlodipine 5 mg by mouth daily continue hydralazine 100 mg 3 times a day #4 lower extremity edema. No recent echocardiogram in the system. Patient denies history of heart failure. Echocardiogram ordered. EKG without any sign of left ventricular hypertrophy but does suggest some ST-T wave changes. Repeat EKG. Patient currently on Lasix 40 mg by mouth twice a day and metolazone 5 mg by mouth daily. Continue Aldactone 25 mg nightly #5 BPH continue Flomax 0.4 mg daily at bedtime. #6 insomnia patient takes Restoril and Benadryl at home to help with sleep. Would require another sleep aid. We can add melatonin 10 mg in addition to help with the sleep #7 GI prophylaxis with Protonix 40 mg by mouth daily #8 DVT prophylaxis with heparin hold morning dose pack to the surgery #9 CODE STATUS full code #10 disposition nothing by mouth after midnight for possible surgery Thank you for the consult will be happy to assist the patient in medical needs patient is here
[2017-09-19] MEDS: SYMBICORT 160-4.5 MCG INHALER INHALATION SCH (21:00)
[2017-09-19] MEDS: TAMSULOSIN 0.4 MG CAP.ER.24H PO SCH (22:09)
[2017-09-19] MEDS: ATORVASTATIN 10 MG TAB PO SCH (22:09)
[2017-09-19] MEDS: hydrALAZINE HCL 50 MG TAB PO SCH (22:09)
[2017-09-19] MEDS: MELATONIN 5 MG TABLET PO SCH (23:07)
[2017-09-20] MEDS: MORPHINE SULFATE 4 MG/ML SYRINGE IV PRN ×5 (03:31→20:31)
[2017-09-20] MEDS: SYMBICORT 160-4.5 MCG INHALER INHALATION SCH ×2 (07:17→21:02)
[2017-09-20] MEDS: amLODIPine 5 MG TAB PO SCH (08:11)
[2017-09-20] MEDS: predniSONE 5 MG TAB PO SCH (08:11)
[2017-09-20] MEDS: PANTOPRAZOLE 40 MG TABLET PO SCH (08:12)
[2017-09-20] MEDS: hydrALAZINE HCL 50 MG TAB PO SCH ×3 (08:12→22:36)
[2017-09-20] MEDS: ALLOPURINOL 300 MG TAB PO SCH (08:12)
[2017-09-20] MEDS: SPIRONOLACTONE 25 MG TAB PO SCH (08:12)
[2017-09-20] MEDS: METOLAZONE 5 MG TAB PO SCH (08:12)
[2017-09-20] MEDS: FUROSEMIDE 40 MG TAB PO SCH ×2 (08:12→15:19)
[2017-09-20] MEDS ORDERED: NON-FORMULARY DRUG (B Complex-Vit C-Vit E-Zinc 1 TAB) PO SCH (09:00)
--- NOTE | 2017-09-20 10:05 | P.HPOR ---
History of Present Illness H&P Date: 09/20/17 Chief Complaint: Right hip pain This is a 71-year-old male admitted through the emergency department last evening with complaint of severe right hip pain. The patient is a current patient of Dr. Orosco who is awaiting medical clearance for cervical fusion. He states that he did have a fall about a week ago and has been having increasingly worsening right hip pain. Prior to his fall he was having some pain in that hip as well. On exam and x-ray in the emergency department he was found to have a collapse of his femoral head secondary to avascular necrosis. Computed tomography scan was also performed showing acute fracture through the femoral head. He is admitted to our service for surgical intervention and care. Past Medical History Past Medical History: Cancer, COPD, GERD/Reflux, Hearing Disorder / Deafness, Hyperlipidemia, Hypertension, Osteoarthritis (OA), Skin Disorder, Sleep Apnea/ CPAP/BIPAP Additional Past Medical History / Comment(s): CURRENT: PATIENT AT [facility] FOR TX OF WOUND ON RIGHT SECOND TOE ([facility]) AND ALSO HAS BEEN TO DR. CELIS FOR LOWER BACK PAIN WITH WEAKNESS IN LEGS (PER SPOUSE). USES WALKER AND CANE. C-PAP MACHINE. hx of C-DIFF AFTER RUPTURED APPENDIXapprox 2012 ENLARGED PROSTATE. GOUT. BRUISES ON ARMS, BRUISES EASILY. VOICE HOARSE; HX CA VOCAL CORD 2014; HAD 33 RADIATION [place]. VARICOSE VEINS, wound 2nd right toe/amp History of Any Multi-Drug Resistant Organisms: MRSA Date of last positivie culture/infection: 07-25-17 MDRO Source:: RIGHT SECOND TOE Past Surgical History: Appendectomy, Joint Replacement, Orthopedic Surgery Additional Past Surgical History / Comment(s): RUPTURED APPENDIX. RT ROTATOR CUFF REPAIR, LT TOTAL KNEE. HX VOCAL CORD BIOPSY. Past Anesthesia/Blood Transfusion Reactions: No Reported Reaction Past Psychological History: No Psychological Hx Reported Smoking Status: Former smoker Past Alcohol Use History: Occasional Additional Past Alcohol Use History / Comment(s): STARTED SMOKING AGE 13, QUIT 2004.smoked 2 ppd. DRINKS 6 beers per week Past Drug Use History: None Reported - Past Family History Mother Additional Family Medical History / Comment(s): heart disease, mitral valve stenosis Father Family Medical History: Cancer Additional Family Medical History / Comment(s): STOMACH CANCER Medications and Allergies Home Medications Medication Instructions Recorded Confirmed Type Albuterol Sulfate [Proventil Hfa] 3 puff INHALATION RT-BID 09/16/14 09/19/17 History Allopurinol [Zyloprim] 300 mg PO QAM 09/16/14 09/19/17 History Atorvastatin [Lipitor] 10 mg PO HS 09/16/14 09/19/17 History B Complex-Vit C-Vit E-Zinc [Z-Bec] 1 tab PO DAILY 09/16/14 09/19/17 History Furosemide [Lasix] 40 mg PO BID 09/16/14 09/19/17 History Spironolactone [Aldactone] 25 mg PO QAM 09/16/14 09/19/17 History Tamsulosin HCl [Flomax] 0.4 mg PO HS 09/16/14 09/19/17 History Temazepam [Restoril] 30 mg PO HS PRN 09/16/14 09/19/17 History amLODIPine [Norvasc] 5 mg PO QAM 09/16/14 09/19/17 History hydrALAZINE HCL [Apresoline] 100 mg PO TID 09/16/14 09/19/17 History predniSONE 5 mg PO QAM 09/16/14 09/19/17 History Omeprazole [PriLOSEC] 40 mg PO QAM 08/07/16 09/19/17 History Budesonide/Formoterol Fumarate 1 puff INHALATION RT-BID 09/19/17 09/19/17 History [Symbicort 160-4.5 Mcg Inhaler] Metolazone [Zaroxolyn] 5 mg PO DAILY PRN 09/19/17 09/19/17 History Tiotropium 18 Mcg/Puff [Spiriva] 1 cap INHALATION RT-DAILY 09/19/17 09/19/17 History diphenhydrAMINE [Benadryl] 50 mg PO HS 09/19/17 09/19/17 History Allergies Allergy/AdvReac Type Severity Reaction Status Date / Time tobramycin Allergy Unknown Rash/Hives, Verified 09/19/17 11:17 Itching Physical Examination This is a pleasant 71-year-old male in no acute distress. He is alert and oriented 3. His is present at bedside. Exam of the head neck reveal no obvious deformity. There is slight decreased motion of the cervical spine. Minimal pain with palpation about the paraspinal musculature. Exam of the upper extremities reveals no obvious deformity. Some weakness noted to the upper extremities secondary to cervical radiculopathy. Exam the lower extremities reveals no obvious deformity or shortening. There is pain with any motion of the right hip. He has full foot and ankle motion without difficulty. Neurovascular status to the lower extremity is intact. Results X-rays and computed tomography scan of the right hip reveal collapse of the femoral head secondary to avascular necrosis with acute fracture through the femoral head. - Labs Labs: Abnormal Lab Results - Last 24 Hours (Table) 09/19/17 09/19/17 09/19/17 Range/Units 12:00 12:00 12:00 RBC 4.17 L (4.30-5.90) m/uL Hgb 12.9 L (13.0-17.5) gm/dL RDW 16.0 H (11.5-15.5) % Neutrophils # 8.7 H (1.3-7.7) k/uL Lymphocytes # 0.5 L (1.0-4.8) k/uL Sodium 135 L (137-145) mmol/L Chloride 95 L (98-107) mmol/L Carbon Dioxide 32 H (22-30) mmol/L BUN 27 H (9-20) mg/dL Glucose 112 H (74-99) mg/dL Total Creatine Kinase 34 L (55-170) U/L H & H 09/19/17 Range/Units 12:00 Hgb 12.9 L (13.0-17.5) gm/dL Hct 39.1 (39.0-53.0) % Coagulation 09/19/17 Range/Units 12:00 INR 1.0 (<1.2) Result Diagrams: 09/19/17 12:00 09/19/17 12:00 Assessment and Plan (1) Avascular necrosis of bone of right hip Current Visit: Yes Status: Acute Code(s): M87.051 - IDIOPATHIC ASEPTIC NECROSIS OF RIGHT FEMUR SNOMED Code(s): 404287448 (2) Fracture of femoral head Current Visit: Yes Status: Acute Code(s): S72.059A - UNSP FRACTURE OF HEAD OF UNSP FEMUR, INIT FOR CLOS FX SNOMED Code(s): 070978663 (3) Osteoarthritis of hip Current Visit: Yes Status: Acute Code(s): M16.9 - OSTEOARTHRITIS OF HIP, UNSPECIFIED SNOMED Code(s): 103631445 Plan: The clinical and x-ray findings are discussed with the patient and his . It is recommended that he undergo total hip arthroplasty. The procedures been discussed in detail including the possible risks and outcomes of surgery. He may need inpatient rehab postoperatively. We will await medical clearance and planned for possible total right hip arthroplasty on 09/21/2017.
[2017-09-20] MEDS ORDERED: BISACODYL 10 MG SUPP RECTAL STA (12:02)
[2017-09-20] MEDS ORDERED: DOCUSATE 100 MG CAP PO PRN (12:03)
--- NOTE | 2017-09-20 12:03 | P.CRDCN ---
History of Present Illness Consult date: 09/20/17 Chief complaint: Shortness of breath History of present illness: This is a pleasant 71-year-old gentleman with a past medical history significant for chronic respiratory failure secondary to COPD, hypertension, dyslipidemia, presented to the hospital complaining of right hip pain. Apparently the patient fell about a week ago and he landed on the right hip. He has been experiencing right hip discomfort he presented to the emergency room where the x-ray showed what it seems to be right hip fracture and he was seen by orthopedic surgeon as scheduled to undergo surgery tomorrow. The cardiac consult is for preop assessment before the surgery. The patient is not aware of any prior history of coronary artery disease and he never seen any first leveler in the past. He does have COPD which seems to be stable and he does have shortness of breath secondary to COPD and according to him and his the shortness of breath has been the same for the last year or so. Beside that he denies having any chest pain or chest discomfort, dizziness or lightheadedness, or syncope. I did review the EKG which showed sinus rhythm without any ischemic ST or T- wave abnormalities. The patient has been maintaining a good blood pressure as well as good heart rate. He is in process of having an echocardiogram later on today. From a cardiovascular standpoint of view, the patient can proceed with the surgery and of course we are awaiting the pulmonary input regarding the patient. He is in process to be seen by the pulmonary service. Also I am going to follow-up on the echocardiogram. Past Medical History Past Medical History: Cancer, COPD, GERD/Reflux, Hearing Disorder / Deafness, Hyperlipidemia, Hypertension, Osteoarthritis (OA), Skin Disorder, Sleep Apnea/ CPAP/BIPAP Additional Past Medical History / Comment(s): CURRENT: PATIENT [facility] FOR TX OF WOUND ON RIGHT SECOND TOE ([facility]) AND ALSO HAS BEEN TO DR. CELIS FOR LOWER BACK PAIN WITH WEAKNESS IN LEGS (PER SPOUSE). USES WALKER AND CANE. C-PAP MACHINE. hx of C-DIFF AFTER RUPTURED APPENDIXapprox 2012 ENLARGED PROSTATE. GOUT. BRUISES ON ARMS, BRUISES EASILY. VOICE HOARSE; HX CA VOCAL CORD 2014; HAD 33 RADIATION TX. VARICOSE VEINS, wound 2nd right toe/amp History of Any Multi-Drug Resistant Organisms: MRSA Date of last positivie culture/infection: 07-25-17 MDRO Source:: RIGHT SECOND TOE Past Surgical History: Appendectomy, Joint Replacement, Orthopedic Surgery Additional Past Surgical History / Comment(s): RUPTURED APPENDIX. RT ROTATOR CUFF REPAIR, LT TOTAL KNEE. HX VOCAL CORD BIOPSY. Past Anesthesia/Blood Transfusion Reactions: No Reported Reaction Past Psychological History: No Psychological Hx Reported Smoking Status: Former smoker Past Alcohol Use History: Occasional Additional Past Alcohol Use History / Comment(s): STARTED SMOKING AGE 13, QUIT 2004.smoked 2 ppd. DRINKS 6 beers per week Past Drug Use History: None Reported - Past Family History Mother Additional Family Medical History / Comment(s): heart disease, mitral valve stenosis Father Family Medical History: Cancer Additional Family Medical History / Comment(s): STOMACH CANCER Medications and Allergies Home Medications Medication Instructions Recorded Confirmed Type Albuterol Sulfate [Proventil Hfa] 3 puff INHALATION RT-BID 09/16/14 09/19/17 History Allopurinol [Zyloprim] 300 mg PO QAM 09/16/14 09/19/17 History Atorvastatin [Lipitor] 10 mg PO HS 09/16/14 09/19/17 History B Complex-Vit C-Vit E-Zinc [Z-Bec] 1 tab PO DAILY 09/16/14 09/19/17 History Furosemide [Lasix] 40 mg PO BID 09/16/14 09/19/17 History Spironolactone [Aldactone] 25 mg PO QAM 09/16/14 09/19/17 History Tamsulosin HCl [Flomax] 0.4 mg PO HS 09/16/14 09/19/17 History Temazepam [Restoril] 30 mg PO HS PRN 09/16/14 09/19/17 History amLODIPine [Norvasc] 5 mg PO QAM 09/16/14 09/19/17 History hydrALAZINE HCL [Apresoline] 100 mg PO TID 09/16/14 09/19/17 History predniSONE 5 mg PO QAM 09/16/14 09/19/17 History Omeprazole [PriLOSEC] 40 mg PO QAM 08/07/16 09/19/17 History Budesonide/Formoterol Fumarate 1 puff INHALATION RT-BID 09/19/17 09/19/17 History [Symbicort 160-4.5 Mcg Inhaler] Metolazone [Zaroxolyn] 5 mg PO DAILY PRN 09/19/17 09/19/17 History Tiotropium 18 Mcg/Puff [Spiriva] 1 cap INHALATION RT-DAILY 09/19/17 09/19/17 History diphenhydrAMINE [Benadryl] 50 mg PO HS 09/19/17 09/19/17 History Allergies Allergy/AdvReac Type Severity Reaction Status Date / Time tobramycin Allergy Unknown Rash/Hives, Verified 09/19/17 11:17 Itching Physical Exam Vitals: Vital Signs Temp Pulse Pulse Resp BP BP Pulse Ox 09/20/17 05:48 98.5 F 84 16 140/73 97 09/19/17 22:20 94 L 09/19/17 22:04 97.9 F 84 145/104 96 09/19/17 21:00 97 09/19/17 17:00 97.2 F L 81 20 147/73 95 09/19/17 15:34 78 18 161/75 98 09/19/17 13:35 75 18 160/69 98 09/19/17 12:06 18 Intake and Output 09/19/17 09/20/17 09/20/17 22:59 06:59 14:59 Output Total 350 Balance -350 Output: Urine 350 Other: Voiding Method Urinal # Voids 2 - Constitutional General appearance: no acute distress - Respiratory Respiratory: bilateral: wheezing - Cardiovascular Rhythm: regular Heart sounds: normal: S1, S2 Results 09/19/17 12:00 09/19/17 12:00 Cardiac Enzymes 09/19/17 09/19/17 Range/Units 12:00 12:00 AST 25 (17-59) U/L CK-MB (CK-2) 1.3 (0.0-2.4) ng/mL Troponin I <0.012 (0.000-0.034) ng/mL Coagulation 09/19/17 Range/Units 12:00 PT 9.8 (9.0-12.0) sec APTT 24.7 (22.0-30.0) sec CBC 09/19/17 Range/Units 12:00 WBC 10.1 (3.8-10.6) k/uL RBC 4.17 L (4.30-5.90) m/uL Hgb 12.9 L (13.0-17.5) gm/dL Hct 39.1 (39.0-53.0) % Plt Count 198 (150-450) k/uL Comprehensive Metabolic Panel 09/19/17 Range/Units 12:00 Sodium 135 L (137-145) mmol/L Potassium 3.8 (3.5-5.1) mmol/L Chloride 95 L (98-107) mmol/L Carbon Dioxide 32 H (22-30) mmol/L BUN 27 H (9-20) mg/dL Creatinine 0.92 (0.66-1.25) mg/dL Glucose 112 H (74-99) mg/dL Calcium 9.0 (8.4-10.2) mg/dL AST 25 (17-59) U/L ALT 35 (21-72) U/L Alkaline Phosphatase 122 (38-126) U/L Total Protein 6.3 (6.3-8.2) g/dL Albumin 3.7 (3.5-5.0) g/dL Current Medications Generic Name Dose Route Start Last Admin Trade Name Freq PRN Reason Stop Dose Admin Acetaminophen 650 mg 09/19/17 14:35 Tylenol Tab PO Q6HR PRN Mild Pain or Fever > 100.5 Allopurinol 300 mg 09/20/17 09:00 09/20/17 08:12 Zyloprim PO 300 mg QAM FLORA Administration Amlodipine Besylate 5 mg 09/20/17 09:00 09/20/17 08:11 Norvasc PO 5 mg QAM FLORA Administration Atorvastatin Calcium 10 mg 09/19/17 21:00 09/19/17 22:09 Lipitor PO 10 mg HS FLORA Administration Budesonide/Formoterol Fumarate 1 puff 09/19/17 20:00 09/20/17 07:17 Symbicort 160-4.5 Mcg Inhaler INHALATION 1 puff RT-BID FLORA Administration Furosemide 40 mg 09/19/17 17:00 09/20/17 08:12 Lasix PO 40 mg 0900,1700 FLORA Administration Hydralazine HCl 100 mg 09/19/17 22:00 09/20/17 08:12 Apresoline PO 100 mg TID FLORA Administration Sodium Chloride 1,000 mls @ 20 mls/hr 09/19/17 14:45 09/19/17 17:13 Saline 0.9% IV Not Given .Q24H FLORA Ipratropium [place] 0.5 mg 09/20/17 08:00 Atrovent Nebulized INHALATION RT-QID FLORA Melatonin 10 mg 09/19/17 21:00 09/19/17 23:07 Melatonin PO Not Given HS FLORA Metolazone 5 mg 09/20/17 09:00 09/20/17 08:12 Zaroxolyn PO 5 mg DAILY FLORA Administration Morphine Sulfate 4 mg 09/19/17 14:35 09/20/17 11:26 Morphine Sulfate (Inj) IV 4 mg Q4HR PRN Administration Severe Pain Naloxone HCl 0.2 mg 09/19/17 14:35 Narcan IV Q2M PRN Opioid Reversal Pantoprazole Sodium 40 mg 09/20/17 07:30 09/20/17 08:12 Protonix PO 40 mg [id number] FLORA Administration Prednisone 5 mg 09/20/17 09:00 09/20/17 08:11 PO 5 mg QAM FLORA Administration Spironolactone 25 mg 09/20/17 09:00 09/20/17 08:12 Aldactone PO 25 mg QAM FLORA Administration Tamsulosin HCl 0.4 mg 09/19/17 21:00 09/19/17 22:09 Flomax PO 0.4 mg HS FLORA Administration Temazepam 30 mg 09/19/17 16:46 Restoril PO HS PRN Insomnia Tramadol HCl 50 mg 09/19/17 14:35 Ultram PO Q6H PRN Moderate Pain Intake and Output 09/19/17 09/20/17 09/20/17 22:59 06:59 14:59 Output Total 350 Balance -350 Output: Urine 350 Other: Voiding Method Urinal # Voids 2 09/19/17 12:00 09/19/17 12:00 Assessment and Plan Assessment: Assessment #1 right hip fracture secondary to fall #2 severe osteoporosis #3 COPD #4 hypertension #5 dyslipidemia Plan #1 from the cardiac standpoint of view, the patient can proceed with the surgery #2 I will follow-up with the echocardiogram as well #3 awaiting the pulmonary consult as well as. Thank you for allowing us participate in his care
--- NOTE | 2017-09-20 12:05 | ECHOF ---
Referral Reason:r/o CHF, LE edema and SOB MEASUREMENTS -------- HEIGHT: 182.9 cm WEIGHT: 97.1 kg BP: 140/73 IVSd: 0.9 cm (0.6 - 1.1) LVIDd: 4.8 cm (3.9 - 5.3) LVPWd: 1.3 cm (0.6 - 1.1) IVSs: 1.6 cm LVIDs: 3.4 cm LVPWs: 2.0 cm Ao Diam: 3.7 cm (2.0 - 3.7) AV Cusp: 2.4 cm (1.5 - 2.6) LA Diam: 4.0 cm (2.7 - 3.8) MV EXCURSION: 25.163 mm (> 18.000) MV EF SLOPE: 136 mm/s (70 - 150) EPSS: 1.1 cm MV E Anthony: 0.39 m/s MV DecT: 273 ms MV A Anthony: 0.51 m/s MV E/A Ratio: 0.77 RAP: 5.00 mmHg RVSP: 9.79 mmHg FINDINGS -------- Sinus rhythm. This was a technically difficult study with suboptimal views. The left ventricular size is normal. Left ventricular wall thickness is normal. Overall left vent ricular systolic function is low-normal with, an EF between 50 - 55 %. The RV was not well visualized. The left atrium was not well visualized. The right atrium was not well visualized. Lumason used The aortic valve was not well visualized. The mitral valve was not well visualized. The tricuspid valve was not well visualized. Trace tricuspid regurgitation present. The right caridad tricular systolic pressure, as measured by Doppler, is 9.79mmHg. The pulmonic valve was not well visualized. CONCLUSIONS -------- 1. Sinus rhythm. 2. This was a technically difficult study with suboptimal views. 3. The left ventricular size is normal. 4. Left ventricular wall thickness is normal. 5. Overall left ventricular systolic function is low-normal with, an EF between 50 - 55 %. 6. The RV was not well visualized. 7. The left atrium was not well visualized. 8. The right atrium was not well visualized. 9. Lumason used 10. The aortic valve was not well visualized. 11. The mitral valve was not well visualized. 12. The tricuspid valve was not well visualized. 13. Trace tricuspid regurgitation present. 14. The right ventricular systolic pressure, as measured by Doppler, is 9.79mmHg. 15. The pulmonic valve was not well visualized. DRAFTER DETAIL: Celsa Recio RDCS
[2017-09-20] MEDS ORDERED: DOCUSATE 100 MG CAP PO SCH (12:15)
--- NOTE | 2017-09-20 13:21 | P.PN ---
Subjective Progress Note Date: 09/20/17 The 71 year old male patient of Dr. 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 Sparks, history of hyperlipidemia, hypertension, history of lower extremity edema though patient denies history of heart failure, history of osteoarthritis, sleep apnea wears CPAP at night presents in with the acute onset of lower extremity weakness associated with urinary incontinence that started today. According to the patient she she notices patient walking on the toes on the right hip for the past 6 weeks but patient also underwent toe amputation on the right second toe by Dr. Moulton and was nonweightbearing for 3 weeks. Patient was wheelchair bound couple of weeks ago and has started using cane and walker for the past 3 weeks. He has been sleeping in the chair as he is unable to lay flat due to the hip pain. Patient did not seek any medical attention for the hip pain but he was concerned about his neck pain for which he underwent MRI of the neck which showed spinal cord compression at the level of C5-C6 and C7 and was planning to undergo surgery under Dr. Moctezuma and was due for pulmonary and medical clearance by Dr. Reynoso for the surgery to be performed in the neck. Since the hip pain got worse and then patient was unable to put weight on his leg patient's brought the patient to the ER. Vitals were stable. Pulse 75 , respiratory rate 18, blood pressure 160/69 saturating on 98% on 2 L. X-ray and lumbar x-ray was obtained that suggested end-stage right hip osteoarthrosis or collapse of the weightbearing portion of the femoral head and secondary super only true joint subluxation moderate osteoarthritis of the left hip was seen. Followed by hip CT that suggested end-stage osteoarthropathy with associated vertical acute stress fracture to the superior femoral head as suspected on radiograph. Lumbar x-ray suggested moderate multilevel disc and endplate degenerative disc with past hypertrophic face arthropathy with grade 1 spondylolisthesis throughout the spine. Aneurysm of the abdominal aorta seen at 3.4 cm . The patient is admitted for orthopedic surgery. 09/20: Patient has been seen by Dr. Watt from cardiology and cleared for surgery. Pulmonary clearance is still pending. Echocardiogram reveals EF of 50-55%, difficult study, trace tricuspid regurgitation. Patient is tentatively scheduled for total hip arthroplasty on Sunday, 09/21. Patient states he only slept for 4 hours last night. Pain medication did help is not sure if melatonin helped. His last bowel movement was one and half day ago and he would like a suppository now. Patient and are planning for [facility] for subacute rehab following surgery. Objective - Vital Signs Vital signs: Vital Signs Temp 98.5 F 09/20/17 05:48 Pulse 84 09/20/17 05:48 Resp 16 09/20/17 05:48 BP 140/73 09/20/17 05:48 Pulse Ox 97 09/20/17 05:48 Intake & Output 09/19/17 09/20/17 09/20/17 18:59 06:59 18:59 Output Total 350 Balance -350 Weight 97.069 kg Output: Urine 350 Other: Voiding Method Urinal Urinal # Voids 1 2 - Exam General appearance: cooperative, no acute distress, obese - EENT Eyes: anicteric sclerae, PERRLA, normal appearance ENT: hearing grossly normal - Neck Neck: no lymphadenopathy, normal ROM, no other, no rigidity, no stridor, no thyromegaly - Respiratory Respiratory: bilateral: Crackles at the bases otherwise clear to auscultate - Cardiovascular Rhythm: regular Heart sounds: normal: S1, S2 Abnormal Heart Sounds: no systolic murmur, no diastolic murmur, no rub, no S3 Gallop, no S4 Gallop, no click, bilateral 1+ pitting edema - Gastrointestinal General gastrointestinal: normal bowel sounds, soft - Integumentary Integumentary: no rash bilateral lower extremity redness and edema positive peripheral pulses 2+ - Neurologic Neurologic: CNII-XII intact - Musculoskeletal Musculoskeletal: Unable to be put any weight on the right lower extremity. Right lower extremity in flexion 30 due to extreme pain. Pain on rotation of the hip. - Psychiatric Psychiatric: A&O x's 3, appropriate affect - Labs CBC & Chem 7: 09/19/17 12:00 09/19/17 12:00 Labs: Abnormal Lab Results - Last 24 Hours (Table) 09/19/17 09/19/17 09/19/17 Range/Units 12:00 12:00 12:00 RBC 4.17 L (4.30-5.90) m/uL Hgb 12.9 L (13.0-17.5) gm/dL RDW 16.0 H (11.5-15.5) % Neutrophils # 8.7 H (1.3-7.7) k/uL Lymphocytes # 0.5 L (1.0-4.8) k/uL Sodium 135 L (137-145) mmol/L Chloride 95 L (98-107) mmol/L Carbon Dioxide 32 H (22-30) mmol/L BUN 27 H (9-20) mg/dL Glucose 112 H (74-99) mg/dL Total Creatine Kinase 34 L (55-170) U/L Assessment and Plan Plan: #1 End-stage osteoarthropathy with vertical acute stress fracture through the superior femoral head. Continue pain control with morphine 4 mg every 4 hours as needed. Patient has significant congestion and lower extremity edema on examination. Hg suggestive of some nonspecific ST abnormality with abberant conduction. Repeat EKG. Need further evaluation with echocardiogram. Patient has history of COPD had no lung function doesn't test done for past 1 year. Consult with cardiology and pulmonary for clearance. Patient denies any history of heart failure but does take metolazone and Lasix at home for lower extremity edema. BNP ordered. GI prophylaxis with Protonix 40 mg. Patient denies having stress test done for the past 10 years. Less than 4 MET on functional activity due to pain in the hip. Patient does have history of peripheral vascular disease and COPD that and increases his risk to 1% for nonfatal myocardial infarction and nonfatal cardiac arrest. Awaiting cardiology and pulmonary clearance. #2 gout - continue allopurinol 300 mg hold colchicine continue prednisone 5 mg by mouth daily #3 hypertension - continue amlodipine 5 mg by mouth daily continue hydralazine 100 mg 3 times a day #4 lower extremity edema. No recent echocardiogram in the system. Patient denies history of heart failure. Echocardiogram ordered. EKG without any sign of left ventricular hypertrophy but does suggest some ST-T wave changes. Repeat EKG. Patient currently on Lasix 40 mg by mouth twice a day and metolazone 5 mg by mouth daily. Continue Aldactone 25 mg nightly #5 BPH continue Flomax 0.4 mg daily at bedtime. #6 insomnia patient takes Restoril and Benadryl at home to help with sleep. Would require another sleep aid. We can add melatonin 10 mg in addition to help with the sleep #7 GI prophylaxis with Protonix 40 mg by mouth daily #8 DVT prophylaxis with heparin hold morning dose pack to the surgery #9 CODE STATUS full code Discharge plan: [facility] for subacute rehab Impression and plan of care have been directed as dictated by the signing physician. Raysa Rossi nurse practitioner acting as scribe for signing physician.
[2017-09-20] MEDS: SODIUM CHLORIDE 0.9% 1,000 ML IV SCH (13:37)
[2017-09-20] MEDS: NYSTATIN 100,000 UNIT/ML SUSP 500,000 UNIT/5 ML CUP PO SCH ×3 (13:37→22:37)
--- NOTE | 2017-09-20 15:34 | P.CNPUL ---
History of Present Illness Consult date: 09/20/17 Reason for consult: COPD, other Chief complaint: Preop pulmonary clearance History of present illness: Mr. Moreno is a 71-year-old white male patient with past medical's history of moderately severe COPD, malignant tumor of vocal cord, status post radiation, hypertension, hyperlipidemia, BPH, obstructive sleep apnea and CPAP therapy, was brought to the emergency department on 09/18/2017 for evaluation of weakness. Patient was unable to ambulate, having generalized weakness, more so in the legs, in addition patient was experiencing right hip discomfort over the last couple of weeks. He was awaiting surgery on his cervical spine fusion for C5-C6 and C7 by Dr. Orosco, and he was awaiting cardiology and pulmonary clearance for the surgery. Patient did sustain a fall at home a week ago after which the right hip discomfort became severe limiting patient's ability to ambulate, patient is mostly chair bound, and unable to bear weight on the right. Patient was found to have collapse of his femoral head secondary to avascular necrosis. Computed tomography was also completed showing acute fracture through the femoral head. He was recommended to undergo total hip arthroplasty. We're asked to see the patient in consultation for pulmonary clearance. Currently patient is comfortable, denies any pulmonary complaints, he is on 2 L per nasal cannula his pulse ox is 94%, vital signs are stable, lung sounds are diminished, no rhonchi, no wheezing noted, no fever, no chills. Chest x-ray completed in the emergency department showed strandy left basilar atelectasis, but no acute process. Review of Systems All systems: negative Constitutional: Reports weakness, Denies chills, Denies fever Eyes: denies blurred vision, denies pain Ears, nose, mouth and throat: Denies headache, Denies sore throat Cardiovascular: Reports decreased exercise tolerance, Denies chest pain, Denies shortness of breath Respiratory: Denies cough Gastrointestinal: Denies abdominal pain, Denies diarrhea, Denies nausea, Denies vomiting Musculoskeletal: Denies myalgias Musculoskeletal: left: hip pain, hip stiffness Integumentary: Denies pruritus, Denies rash Neurological: Denies numbness, Denies weakness Psychiatric: Denies anxiety, Denies depression Endocrine: Denies fatigue, Denies weight change Past Medical History Past Medical History: Cancer, COPD, GERD/Reflux, Hearing Disorder / Deafness, Hyperlipidemia, Hypertension, Osteoarthritis (OA), Skin Disorder, Sleep Apnea/ CPAP/BIPAP Additional Past Medical History / Comment(s): CURRENT: PATIENT [facility] FOR TX OF WOUND ON RIGHT SECOND TOE ([facility]) AND ALSO HAS BEEN TO DR. CELIS FOR LOWER BACK PAIN WITH WEAKNESS IN LEGS (PER SPOUSE). USES WALKER AND CANE. C-PAP MACHINE. hx of C-DIFF AFTER RUPTURED APPENDIXapprox 2012 ENLARGED PROSTATE. GOUT. BRUISES ON ARMS, BRUISES EASILY. VOICE HOARSE; HX CA VOCAL CORD 2014; HAD 33 RADIATION TX. VARICOSE VEINS, wound 2nd right toe/amp History of Any Multi-Drug Resistant Organisms: MRSA Date of last positivie culture/infection: 07-25-17 MDRO Source:: RIGHT SECOND TOE Past Surgical History: Appendectomy, Joint Replacement, Orthopedic Surgery Additional Past Surgical History / Comment(s): RUPTURED APPENDIX. RT ROTATOR CUFF REPAIR, LT TOTAL KNEE. HX VOCAL CORD BIOPSY. Past Anesthesia/Blood Transfusion Reactions: No Reported Reaction Past Psychological History: No Psychological Hx Reported Smoking Status: Former smoker Past Alcohol Use History: Occasional Additional Past Alcohol Use History / Comment(s): STARTED SMOKING AGE 13, QUIT 2004.smoked 2 ppd. DRINKS 6 beers per week Past Drug Use History: None Reported - Past Family History Mother Additional Family Medical History / Comment(s): heart disease, mitral valve stenosis Father Family Medical History: Cancer Additional Family Medical History / Comment(s): STOMACH CANCER Medications and Allergies Home Medications Medication Instructions Recorded Confirmed Type Albuterol Sulfate [Proventil Hfa] 3 puff INHALATION RT-BID 09/16/14 09/19/17 History Allopurinol [Zyloprim] 300 mg PO QAM 09/16/14 09/19/17 History Atorvastatin [Lipitor] 10 mg PO HS 09/16/14 09/19/17 History B Complex-Vit C-Vit E-Zinc [Z-Bec] 1 tab PO DAILY 09/16/14 09/19/17 History Furosemide [Lasix] 40 mg PO BID 09/16/14 09/19/17 History Spironolactone [Aldactone] 25 mg PO QAM 09/16/14 09/19/17 History Tamsulosin HCl [Flomax] 0.4 mg PO HS 09/16/14 09/19/17 History Temazepam [Restoril] 30 mg PO HS PRN 09/16/14 09/19/17 History amLODIPine [Norvasc] 5 mg PO QAM 09/16/14 09/19/17 History hydrALAZINE HCL [Apresoline] 100 mg PO TID 09/16/14 09/19/17 History predniSONE 5 mg PO QAM 09/16/14 09/19/17 History Omeprazole [PriLOSEC] 40 mg PO QAM 08/07/16 09/19/17 History Budesonide/Formoterol Fumarate 1 puff INHALATION RT-BID 09/19/17 09/19/17 History [Symbicort 160-4.5 Mcg Inhaler] Metolazone [Zaroxolyn] 5 mg PO DAILY PRN 09/19/17 09/19/17 History Tiotropium 18 Mcg/Puff [Spiriva] 1 cap INHALATION RT-DAILY 09/19/17 09/19/17 History diphenhydrAMINE [Benadryl] 50 mg PO HS 09/19/17 09/19/17 History Allergies Allergy/AdvReac Type Severity Reaction Status Date / Time tobramycin Allergy Unknown Rash/Hives, Verified 09/19/17 11:17 Itching Physical Exam Vitals: Vital Signs Temp Pulse Pulse Resp BP BP BP 09/20/17 14:40 97.4 F L 81 18 159/77 09/20/17 05:48 98.5 F 84 16 140/73 09/19/17 22:20 09/19/17 22:04 97.9 F 84 145/104 09/19/17 21:00 09/19/17 17:00 97.2 F L 81 20 147/73 09/19/17 15:34 78 18 161/75 Pulse Ox 09/20/17 14:40 94 L 09/20/17 05:48 97 09/19/17 22:20 94 L 09/19/17 22:04 96 09/19/17 21:00 97 09/19/17 17:00 95 09/19/17 15:34 98 Intake and Output 09/20/17 09/20/17 09/20/17 06:59 14:59 22:59 Intake Total 160 Output Total 350 Balance -350 160 Intake: IV 160 Sodium Chloride 0.9% 1, 160 000 ml @ 20 mls/hr IV . Q24H [facility] Rx#:[id number] Output: Urine 350 Other: # Voids 3 GENERAL EXAM: Alert, pleasant, 71-year-old white male, comfortable in no apparent distress. HEAD: Normocephalic/atraumatic. EYES: Normal reaction of pupils, equal size. Conjunctiva pink, sclera white. NOSE: Clear with pink turbinates. THROAT: No erythema or exudates. NECK: No masses, no JVD, no thyroid enlargement, no adenopathy. CHEST: No chest wall deformity. Symmetrical expansion. LUNGS: Breath sounds bilaterally, with no rhonchi, no wheezing no rales. CVS: Regular rate and rhythm, normal S1 and S2, no gallops, no murmurs, no rubs ABDOMEN: Soft, nontender. No hepatosplenomegaly, normal bowel sounds, no guarding or rigidity. EXTREMITIES: No clubbing, no edema, no cyanosis, 2+ pulses and upper and lower extremities. Chronic venous stasis changes noted in bilateral lower extremities MUSCULOSKELETAL: Muscle strength and tone normal. SPINE: No scoliosis or deformity SKIN: No rashes CENTRAL NERVOUS SYSTEM: Alert and oriented -3. No focal deficits, tone is normal in all 4 extremities. PSYCHIATRIC: Alert and oriented -3. Appropriate affect. Intact judgment and insight. Results - Laboratory Findings CBC and BMP: 09/19/17 12:00 09/19/17 12:00 PT/INR, D-dimer PT 9.8 sec (9.0-12.0) 09/19/17 12:00 INR 1.0 (<1.2) 09/19/17 12:00 Abnormal lab findings: Abnormal Labs 09/19/17 09/19/17 09/19/17 12:00 12:00 12:00 RBC 4.17 L Hgb 12.9 L RDW 16.0 H Neutrophils # 8.7 H Lymphocytes # 0.5 L Sodium 135 L Chloride 95 L Carbon Dioxide 32 H BUN 27 H Glucose 112 H Total Creatine Kinase 34 L - Diagnostic Findings Chest x-ray: report reviewed, image reviewed Additional studies: Hip CT, EKG, lumbar spine x-ray, hip/pelvis x-ray results reviewed Assessment and Plan Plan: Assessment: #1. Avascular necrosis of bone of right hip, and fracture of femoral head post fall #2. Osteoarthritis of right hip #3. Weakness, difficulty with ambulation, right hip pain related to the above #4. Moderately severe COPD, with baseline FEV1 of 57% of predicted consistent with Gold stage II COPD #5. Obstructive sleep apnea on CPAP therapy #6. History of vocal cord more, status post radiation and chemotherapy, currently in remission #7. Hypertension, hyperlipidemia #8. BPH #9. Gout #10. GERD/reflux Plan: Patient's chest x-ray has been reviewed, patient has no active pulmonary complaints, continue his Symbicort, and nebulized bronchodilators. No chest congestion, no wheezing, dyspnea. Vital signs are stable, chest x-ray was negative for any acute findings. From pulmonary standpoint patient is cleared for his upcoming hip arthroplasty. I performed a history & physical examination of the patient and discussed their management with my nurse practitioner, Esperanza Hopkins. I reviewed the nurse practitioner's note and agree with the documented findings and plan of care. Lung sounds are diminished. The findings and the impression was discussed with the patient. I attest to the documentation by the nurse practitioner. Time with Patient: Greater than 30
[2017-09-20] MEDS: MELATONIN 5 MG TABLET PO SCH (20:52)
[2017-09-20] MEDS: ATORVASTATIN 10 MG TAB PO SCH (20:52)
[2017-09-20] MEDS: TAMSULOSIN 0.4 MG CAP.ER.24H PO SCH (20:52)
[2017-09-21] MEDS: MORPHINE SULFATE 4 MG/ML SYRINGE IV PRN ×3 (00:30→10:54)
[2017-09-21] MEDS: IPRATROPIUM 0.5 MG/2.5 ML NEBU INHALATION SCH ×5 (03:34→17:18)
[2017-09-21] MEDS: SYMBICORT 160-4.5 MCG INHALER INHALATION SCH ×2 (07:11→19:00)
[2017-09-21] MEDS: ALLOPURINOL 300 MG TAB PO SCH (08:07)
[2017-09-21] MEDS: PANTOPRAZOLE 40 MG TABLET PO SCH (08:07)
[2017-09-21] MEDS: FUROSEMIDE 40 MG TAB PO SCH ×2 (08:08→17:18)
[2017-09-21] MEDS: NYSTATIN 100,000 UNIT/ML SUSP 500,000 UNIT/5 ML CUP PO SCH ×3 (08:08→17:18)
[2017-09-21] MEDS: predniSONE 5 MG TAB PO SCH (08:08)
[2017-09-21] MEDS: METOLAZONE 5 MG TAB PO SCH (08:09)
[2017-09-21] MEDS: LACTATED RINGERS 1,000 ML IV SCH ×3 (08:10→15:04)
[2017-09-21] MEDS: SPIRONOLACTONE 25 MG TAB PO SCH (08:11)
[2017-09-21] MEDS: hydrALAZINE HCL 50 MG TAB PO SCH ×3 (08:11→20:59)
[2017-09-21] MEDS: SODIUM CHLORIDE 0.9% 1,000 ML IV SCH (08:12)
[2017-09-21] MEDS: amLODIPine 5 MG TAB PO SCH (08:12)
[2017-09-21 08:22] LABS: HCT 40.2 % (39.0-53.0); HGB 13.3 gm/dL (13.0-17.5); MCH 31.3 pg (25.0-35.0); MCHC 33.2 g/dL (31.0-37.0); MCV 94.1 fL (80.0-100.0); Mean Platelet Volume 7.6; Platelet Count 216 k/uL (150-450); RBC 4.27 m/uL (4.30-5.90); RDW 15.9 % (11.5-15.5); WBC 8.5 k/uL (3.8-10.6)
[2017-09-21 08:35] LABS: Anion Gap 10 mmol/L; Blood Urea Nitrogen 22 mg/dL (9-20); Calcium 9.3 mg/dL (8.4-10.2); Carbon Dioxide 32 mmol/L (22-30); Chloride 93 mmol/L (98-107); Glucose 109 mg/dL (74-99); Potassium 3.4 mmol/L (3.5-5.1); Sodium 135 mmol/L (137-145)
--- NOTE | 2017-09-21 09:04 | P.PN ---
Subjective Progress Note Date: 09/21/17 Principal diagnosis: Preoperative cardiac assessment This is a pleasant 71-year-old gentleman with a past medical history significant for chronic respiratory failure secondary to COPD, hypertension, dyslipidemia, presented to the hospital complaining of right hip pain. Apparently the patient fell about a week ago and he landed on the right hip. He has been experiencing right hip discomfort he presented to the emergency room where the x-ray showed what it seems to be right hip fracture and he was seen by orthopedic surgeon as scheduled to undergo surgery tomorrow. The cardiac consult is for preop assessment before the surgery. The patient is not aware of any prior history of coronary artery disease and he never seen any inside horticultural specialty grower in the past. He does have COPD which seems to be stable and he does have shortness of breath secondary to COPD and according to him and his the shortness of breath has been the same for the last year or so. Beside that he denies having any chest pain or chest discomfort, dizziness or lightheadedness, or syncope. I did review the EKG which showed sinus rhythm without any ischemic ST or T- wave abnormalities. The patient has been maintaining a good blood pressure as well as good heart rate. He is in process of having an echocardiogram later on today. From a cardiovascular standpoint of view, the patient can proceed with the surgery and of course we are awaiting the pulmonary input regarding the patient. He was also seen by the pulmonary service and he was cleared for the surgery. The patient is going to have the surgery later on today. Objective - Vital Signs Vital signs: Vital Signs Temp 97.2 F L 09/21/17 06:11 Pulse 81 09/21/17 06:11 Resp 16 09/21/17 06:11 BP 126/74 09/21/17 06:11 Pulse Ox 91 L 09/21/17 06:11 Intake & Output 09/20/17 09/21/17 09/21/17 18:59 06:59 18:59 Intake Total 160 Output Total 200 Balance 160 -200 Intake: IV 160 Sodium Chloride 0.9% 1, 160 000 ml @ 20 mls/hr IV . Q24H [facility] Rx#:[id number] Output: Urine 200 Other: Voiding Method Toilet Urinal # Voids 3 2 - Constitutional General appearance: Present: no acute distress - Respiratory Respiratory: bilateral: diminished - Cardiovascular Rhythm: regular - Labs CBC & Chem 7: 09/21/17 07:53 09/21/17 07:53 Labs: Abnormal Lab Results - Last 24 Hours (Table) 09/21/17 09/21/17 Range/Units 07:53 07:53 RBC 4.27 L (4.30-5.90) m/uL RDW 15.9 H (11.5-15.5) % Sodium 135 L (137-145) mmol/L Potassium 3.4 L (3.5-5.1) mmol/L Chloride 93 L (98-107) mmol/L Carbon Dioxide 32 H (22-30) mmol/L BUN 22 H (9-20) mg/dL Glucose 109 H (74-99) mg/dL Assessment and Plan Assessment: Assessment #1 right hip fracture secondary to fall #2 severe osteoporosis #3 COPD #4 hypertension #5 dyslipidemia Plan #1 from the cardiac standpoint of view, the patient can proceed with the surgery #2 echocardiogram was reviewed and showed normal LV function #3 we will follow-up with the patient on when necessary case. Thank you for allowing us participate in his care
[2017-09-21] MEDS ORDERED: ROPIVACAINE 246.25 MG, EPINEPHrine 0.5 MG, KETOROLAC 30 MG, cloNIDine HCL/PF 80 MCG, WA... MISCELLANE ONE ×5 (09:56)
--- NOTE | 2017-09-21 13:11 | P.PN ---
Subjective Progress Note Date: 09/21/17 Principal diagnosis: Fracture of right femoral head. Mr. Moreno is a 71-year-old white male patient with past medical's history of moderately severe COPD, malignant tumor of vocal cord, status post radiation, hypertension, hyperlipidemia, BPH, obstructive sleep apnea and CPAP therapy, was brought to the emergency department on 09/18/2017 for evaluation of weakness. Patient was unable to ambulate, having generalized weakness, more so in the legs, in addition patient was experiencing right hip discomfort over the last couple of weeks. He was awaiting surgery on his cervical spine fusion for C5-C6 and C7 by Dr. Orosco, and he was awaiting cardiology and pulmonary clearance for the surgery. Patient did sustain a fall at home a week ago after which the right hip discomfort became severe limiting patient's ability to ambulate, patient is mostly chair bound, and unable to bear weight on the right. Patient was found to have collapse of his femoral head secondary to avascular necrosis. Computed tomography was also completed showing acute fracture through the femoral head. He was recommended to undergo total hip arthroplasty. We're asked to see the patient in consultation for pulmonary clearance. Currently patient is comfortable, denies any pulmonary complaints, he is on 2 L per nasal cannula his pulse ox is 94%, vital signs are stable, lung sounds are diminished, no rhonchi, no wheezing noted, no fever, no chills. Chest x-ray completed in the emergency department showed strandy left basilar atelectasis, but no acute process. The patient is seen again today 09/21/2017 in follow-up on the regular medical floor. He is awake and alert in no acute distress. He is maintaining O2 saturations in the low 90s on room air. He denies any worsening shortness of breath, cough or congestion. He continues on Symbicort and albuterol inhalations. White count 8.5. Hemoglobin 13.3. Creatinine 0.89. The plan is for right hip repair this afternoon. Objective - Vital Signs Vital signs: Vital Signs Temp 97.2 F L 09/21/17 06:11 Pulse 81 09/21/17 06:11 Resp 16 09/21/17 06:11 BP 126/74 09/21/17 06:11 Pulse Ox 91 L 09/21/17 06:11 Intake & Output 09/20/17 09/21/17 09/21/17 18:59 06:59 18:59 Intake Total 160 Output Total 200 250 Balance 160 -200 -250 Intake: IV 160 Sodium Chloride 0.9% 1, 160 000 ml @ 20 mls/hr IV . Q24H [facility] Rx#:[id number] Output: Urine 200 250 Other: Voiding Method Toilet Urinal # Voids 3 2 2 - Exam GENERAL EXAM: Alert, pleasant, 71-year-old white male, comfortable in no apparent distress. HEAD: Normocephalic/atraumatic. EYES: Normal reaction of pupils, equal size. Conjunctiva pink, sclera white. NOSE: Clear with pink turbinates. THROAT: No erythema or exudates. NECK: No masses, no JVD, no thyroid enlargement, no adenopathy. CHEST: No chest wall deformity. Symmetrical expansion. LUNGS: Breath sounds bilaterally, with no rhonchi, no wheezing no rales. CVS: Regular rate and rhythm, normal S1 and S2, no gallops, no murmurs, no rubs ABDOMEN: Soft, nontender. No hepatosplenomegaly, normal bowel sounds, no guarding or rigidity. EXTREMITIES: No clubbing, no edema, no cyanosis, 2+ pulses and upper and lower extremities. Chronic venous stasis changes noted in bilateral lower extremities MUSCULOSKELETAL: Muscle strength and tone normal. SPINE: No scoliosis or deformity SKIN: No rashes CENTRAL NERVOUS SYSTEM: Alert and oriented -3. No focal deficits, tone is normal in all 4 extremities. PSYCHIATRIC: Alert and oriented -3. Appropriate affect. Intact judgment and insight. - Labs CBC & Chem 7: 09/21/17 07:53 09/21/17 07:53 Labs: Abnormal Lab Results - Last 24 Hours (Table) 09/21/17 09/21/17 Range/Units 07:53 07:53 RBC 4.27 L (4.30-5.90) m/uL RDW 15.9 H (11.5-15.5) % Sodium 135 L (137-145) mmol/L Potassium 3.4 L (3.5-5.1) mmol/L Chloride 93 L (98-107) mmol/L Carbon Dioxide 32 H (22-30) mmol/L BUN 22 H (9-20) mg/dL Glucose 109 H (74-99) mg/dL Assessment and Plan Assessment: Assessment: #1. Avascular necrosis of bone of right hip, and fracture of femoral head post fall #2. Osteoarthritis of right hip #3. Weakness, difficulty with ambulation, right hip pain related to the above #4. Moderately severe COPD, with baseline FEV1 of 57% of predicted consistent with Gold stage II COPD #5. Obstructive sleep apnea on CPAP therapy #6. History of vocal cord more, status post radiation and chemotherapy, currently in remission #7. Hypertension, hyperlipidemia #8. BPH #9. Gout #10. GERD/reflux Plan: The patient was seen and evaluated by Dr. Orozco. He is doing well from the pulmonary standpoint. We will continue with his current pulmonary medications. The plan is for hip repair later this afternoon. We'll continue to follow. I, the cosigning physician, performed a history & physical examination of the patient. Lungs sounds are clear. Maintaining good O2 saturations in the 90s on room air. I discussed the assessment and plan of care with my nurse practitioner, Carolee Yan. I attest to the above note as dictated by her.
[2017-09-21] MEDS ORDERED: IV FLUID CONTINUATION 1,000 ML IV ONE (13:51)
[2017-09-21] MEDS ORDERED: fentaNYL (PF) 50 MCG/ML 2 ML AMP IV ONE ×2 (13:58)
[2017-09-21] MEDS ORDERED: MAGNESIUM HYDROXIDE 2,400 MG/10 ML CUP PO PRN (14:09)
[2017-09-21] MEDS ORDERED: hydrOXYzine PAMOATE 25 MG CAP PO PRN (14:09)
[2017-09-21] MEDS ORDERED: HYDROmorphone 1 MG/ML 1 ML SYRINGE IVP PRN ×2 (14:09)
[2017-09-21] MEDS ORDERED: NALOXONE 0.4 MG/ML 1 ML VIAL IV PRN (14:09)
[2017-09-21] MEDS ORDERED: SODIUM CHLORIDE 0.9% 1,000 ML IV SCH (14:15)
--- NOTE | 2017-09-21 15:01 | P.PN ---
Subjective Progress Note Date: 09/21/17 The 71 year old male patient of Dr. Renyoso with past medical history of vocal cord cancer 3 years ago status post radiation and chemotherapy, history of COPD last pulmonary function done 1 year ago, follows Dr. Sparks, history of hyperlipidemia, hypertension, history of lower extremity edema though patient denies history of heart failure, history of osteoarthritis, sleep apnea wears CPAP at night presents in with the acute onset of lower extremity weakness associated with urinary incontinence that started today. According to the patient she she notices patient walking on the toes on the right hip for the past 6 weeks but patient also underwent toe amputation on the right second toe by Dr. Moulton and was nonweightbearing for 3 weeks. Patient was wheelchair bound couple of weeks ago and has started using cane and walker for the past 3 weeks. He has been sleeping in the chair as he is unable to lay flat due to the hip pain. Patient did not seek any medical attention for the hip pain but he was concerned about his neck pain for which he underwent MRI of the neck which showed spinal cord compression at the level of C5-C6 and C7 and was planning to undergo surgery under Dr. Moctezuma and was due for pulmonary and medical clearance by Dr. Reynoso for the surgery to be performed in the neck. Since the hip pain got worse and then patient was unable to put weight on his leg patient's brought the patient to the ER. Vitals were stable. Pulse 75 , respiratory rate 18, blood pressure 160/69 saturating on 98% on 2 L. X-ray and lumbar x-ray was obtained that suggested end-stage right hip osteoarthrosis or collapse of the weightbearing portion of the femoral head and secondary super only true joint subluxation moderate osteoarthritis of the left hip was seen. Followed by hip CT that suggested end-stage osteoarthropathy with associated vertical acute stress fracture to the superior femoral head as suspected on radiograph. Lumbar x-ray suggested moderate multilevel disc and endplate degenerative disc with past hypertrophic face arthropathy with grade 1 spondylolisthesis throughout the spine. Aneurysm of the abdominal aorta seen at 3.4 cm . The patient is admitted for orthopedic surgery. 09/20: Patient has been seen by Dr. Watt from cardiology and cleared for surgery. Pulmonary clearance is still pending. Echocardiogram reveals EF of 50-55%, difficult study, trace tricuspid regurgitation. Patient is tentatively scheduled for total hip arthroplasty on Sunday, 09/21. Patient states he only slept for 4 hours last night. Pain medication did help is not sure if melatonin helped. His last bowel movement was one and half day ago and he would like a suppository now. Patient and are planning for [facility] for subacute rehab following surgery. 09/21: Patient states that his pain is terrible today. He is on morphine and hot packs. He is scheduled for surgery this afternoon. Objective - Vital Signs Vital signs: Vital Signs Temp 97.2 F L 09/21/17 06:11 Pulse 81 09/21/17 06:11 Resp 16 09/21/17 06:11 BP 126/74 09/21/17 06:11 Pulse Ox 91 L 09/21/17 06:11 Intake & Output 09/20/17 09/21/17 09/21/17 18:59 06:59 18:59 Intake Total 160 Output Total 200 Balance 160 -200 Intake: IV 160 Sodium Chloride 0.9% 1, 160 000 ml @ 20 mls/hr IV . Q24H [facility] Rx#:[id number] Output: Urine 200 Other: Voiding Method Toilet Urinal # Voids 3 2 - Exam General appearance: cooperative, no acute distress, obese - EENT Eyes: anicteric sclerae, PERRLA, normal appearance ENT: hearing grossly normal - Neck Neck: no lymphadenopathy, normal ROM, no other, no rigidity, no stridor, no thyromegaly - Respiratory Respiratory: bilateral: Crackles at the bases otherwise clear to auscultate - Cardiovascular Rhythm: regular Heart sounds: normal: S1, S2 Abnormal Heart Sounds: no systolic murmur, no diastolic murmur, no rub, no S3 Gallop, no S4 Gallop, no click, bilateral 1+ pitting edema - Gastrointestinal General gastrointestinal: normal bowel sounds, soft - Integumentary Integumentary: no rash bilateral lower extremity redness and edema positive peripheral pulses 2+ - Neurologic Neurologic: CNII-XII intact - Musculoskeletal Musculoskeletal: Unable to be put any weight on the right lower extremity. Right lower extremity in flexion 30 due to extreme pain. Pain on rotation of the hip. - Psychiatric Psychiatric: A&O x's 3, appropriate affect - Labs CBC & Chem 7: 09/21/17 07:53 09/21/17 07:53 Labs: Abnormal Lab Results - Last 24 Hours (Table) 09/21/17 09/21/17 Range/Units 07:53 07:53 RBC 4.27 L (4.30-5.90) m/uL RDW 15.9 H (11.5-15.5) % Sodium 135 L (137-145) mmol/L Potassium 3.4 L (3.5-5.1) mmol/L Chloride 93 L (98-107) mmol/L Carbon Dioxide 32 H (22-30) mmol/L BUN 22 H (9-20) mg/dL Glucose 109 H (74-99) mg/dL Assessment and Plan Plan: #1 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 Continue pain control with morphine 4 mg every 4 hours as needed. Patient denies any history of heart failure but does take metolazone and Lasix at home for lower extremity edema. Cardiology and pulmonary consult appreciated. #2 gout, stable- continue allopurinol 300 mg hold colchicine continue prednisone 5 mg by mouth daily #3 hypertension - continue amlodipine 5 mg by mouth daily continue hydralazine 100 mg 3 times a day #4 lower extremity edema. Continue Aldactone 25 mg nightly, Lasix 40 mg twice daily. #5 BPH continue Flomax 0.4 mg daily at bedtime. 6. Obstructive sleep apnea on CPAP with insomnia patient takes Restoril and Benadryl at home to help with sleep. Would require another sleep aid. We can add melatonin 10 mg in addition to help with the sleep #7 GI prophylaxis with Protonix 40 mg by mouth daily #8 DVT prophylaxis with heparin hold morning dose pack to the surgery #9 CODE STATUS full code 10. Moderately severe COPD, not in exacerbation. Discharge plan: [place] for subacute rehab Impression and plan of care have been directed as dictated by the signing physician. Raysa Rossi nurse practitioner acting as scribe for signing physician.
[2017-09-21] MEDS ORDERED: KETAMINE 10 MG/ML 20 ML VIAL ONE (15:04)
[2017-09-21] MEDS ORDERED: ePHEDrine SULFATE/0.9% NACL/PF 50 MG/5 ML SYRINGE IV ONE (15:04)
[2017-09-21] MEDS ORDERED: fentaNYL (PF) 50 MCG/ML 2 ML AMP ONE (15:04)
[2017-09-21] MEDS ORDERED: MIDAZOLAM 2 MG/2 ML VIAL ONE (15:04)
[2017-09-21] MEDS ORDERED: PHENYLEPHRINE-0.9% NACL SYG 1 MG/10 ML SYRINGE ONE (15:04)
[2017-09-21] MEDS ORDERED: SODIUM CHLORIDE 0.9% 50 ML with ceFAZolin 2,000 MG IV ONE ×2 (15:17)
[2017-09-21] MEDS ORDERED: ceFAZolin 3,000 MG in SODIUM CHLORIDE 0.9% IRRIGATIO 3,000 ML IRRIGATION ONE (15:50)
--- NOTE | 2017-09-21 16:39 | P.OP ---
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 The articulation is Oxinium on polyethylene. Anesthesia: spinal Surgeon: Ray Gutierrez Senior Actuarial Analyst #1: Perla Montanez Estimated Blood Loss (ml): 250 (120 mL returned with Cell Saver) Pathology: other (Femoral head) Condition: stable Disposition: PACU Indications for Procedure: After failure of conservative treatment we discussed the surgical and nonsurgical treatment options at length. Patient wishes to proceed with a total hip arthroplasty with a direct anterior approach. Complications specific to this procedure were discussed at length, including but not limited to infection, leg length discrepancy, dislocation, and nerve injury. Patient is aware of all these complications and informed consent was obtained Operative Findings: The operative findings are consistent with severe osteonecrosis of the right femoral head with femoral head collapse and fracture. Description of Procedure: Patient was seen and evaluated in the preoperative area, consent was reviewed, and the surgical site was marked with a skin marker. Patient was then brought to the operating room and given prophylactic antibiotics intravenously. 1 g of Tranexamic acid was also given. A spinal anesthetic was administered by the anesthesia department. The patient was then placed on the [place] table with the bony prominences well-padded. The hip area was then prepped and draped in usual sterile fashion. A universal timeout was then performed, which confirmed the patient's name, surgical site, ALLERGIES, and procedure being performed. Next the incision site was located at 1 cm distal and 1 cm lateral to the anterior superior iliac spine. The skin and subcutaneous tissues were sharply incised. Incision was carefully dissected down to the fascia overlying the tensor fascia rufino muscle. This fascia was then incised in line with the incision. Next, using blunt finger dissection, the tensor fascia rufino muscle was dissected off its investing fascia. The muscle was then carefully retracted laterally with a cobra retractor over the lateral neck of the femur. Next, the circumflex vessels were identified and cauterized using the AquaMantis device. The anterior hip capsule was then exposed. The capsule was then opened and an inverted T fashion. Cobra retractors were then placed intracapsularly. The proximal femur was then visualized. The femoral neck was then osteotomized appropriate level above the lesser trochanter. Small amount of traction was placed with the [place] table. A small wedge of bone was then removed from the remaining femoral head. Next, using a corkscrew femoral head was easily removed from the acetabulum. On gross visual inspection, the femoral head had complete loss of articular cartilage in multiple periarticular osteophytes. Attention was then turned to the acetabulum. the acetabulum was exposed and any remaining labrum was excised. Sequential reaming of the acetabulum was performed using fluoroscopic guidance. When the appropriate size was reached, a trial was then placed. The position and fit of the trial was checked with fluoroscopy. The trial was then removed. Then, using fluoroscopic guidance, the final implant was impacted at 20 of anteversion and 40 of abduction, and fully seated in the acetabulum. 2 screws were then placed in the acetabulum. Again fluoroscopy was used to check position of the screws. Next, the liner was then impacted, with a 20 elevated liner located in the anterior superior quadrant. Component locking was confirmed. Attention was then directed to the femur. With the aid of the [place] table, the femur was externally rotated to approximately 130, extended, and abducted under the opposite leg. A side hook was then placed under the proximal femur, and the side hook elevator was used to elevate the proximal femur. Retractors were then placed. A capsular release was performed, as well as a release of the conjoined tendon, which afforded excellent visualization of the proximal femur. Next, a box osteotome was used to lateralize the proximal femur. A hand etcher helper was then used to locate the femoral canal. Sequential broaching was then performed with appropriate size which afforded excellent fixation in the proximal femur. A trial was then placed with appropriate head and neck, and the hip was gently reduced with the aid of the [place] table. Fluoroscopy was then used to check position of the components, as well as to ensure equal leg lengths. The hip was then gently dislocated and the trials were then removed. Final implants were then impacted and the hip was again reduced. Final fluoroscopic x-rays confirmed that the components were in anatomic position, as well as equal leg lengths. The hip was also taken through range of motion, and found to be stable. The hip was then copiously irrigated with antibiotic solution with pulsatile lavage. The hip was then irrigated with Irrisept solution. The soft tissues were then injected with a ropivacaine solution, which consisted of 246.25 mg of ropivacaine, 0.5 mg of epinephrine, 30 mg of Toradol, 80 g of clonidine, and 48.45 mL of sterile water, for a total of 100 mL of fluid injected. A second dose of 1 g of Tranexamic acid was also given. the fascia was then closed with 2-0 strata fix suture. The subcutaneous tissue was closed with 3-0 Vicryl. The subcuticular tissue was closed with 3-0 strata fix suture. The skin was then closed with Dermabond glue and a sterile silver dressing. The patient was then transferred to the recovery room in stable condition. The infertility medical assistant GISELLE Dixon was required due to the complexity of surgery, and the need for skilled surgical corsetier for positioning, draping, exposure, retraction, and closure of the wound.
[2017-09-21] MEDS ORDERED: SODIUM CHLORIDE 0.9% 500 ML IV ONE (16:52)
--- NOTE | 2017-09-21 17:48 | XR ---
EXAMINATION TYPE: XR Hip Limited RT DATE OF EXAM: 09/21/2017 COMPARISON: None HISTORY: Postop hip surgery TECHNIQUE: Single view FINDINGS: There is right hip prosthesis. Components appear in anatomic position. IMPRESSION: Hip prosthesis without sign of complicating process.
[2017-09-21] MEDS: ceFAZolin IN SWFI 2 GM/20 ML SYRINGE IVP SCH (18:06)
[2017-09-21] MEDS: HYDROmorphone 1 MG/ML 1 ML SYRINGE IVP PRN (18:28)
[2017-09-21] MEDS: DIAZEPAM 5 MG TAB PO PRN (20:34)
[2017-09-21] MEDS: TAMSULOSIN 0.4 MG CAP.ER.24H PO SCH (20:51)
[2017-09-21] MEDS: ATORVASTATIN 10 MG TAB PO SCH (20:51)
[2017-09-21] MEDS: ASPIRIN 325 MG TAB PO SCH (21:29)
[2017-09-22] MEDS: MELATONIN 5 MG TABLET PO SCH ×2 (01:13→22:22)
[2017-09-22] MEDS: NYSTATIN 100,000 UNIT/ML SUSP 500,000 UNIT/5 ML CUP PO SCH ×5 (01:13→22:22)
[2017-09-22] MEDS: ceFAZolin IN SWFI 2 GM/20 ML SYRINGE IVP SCH (01:14)
[2017-09-22] MEDS: SENNOSIDES-DOCUSATE SODIUM 1 EACH TAB PO SCH ×2 (01:14→22:23)
[2017-09-22] MEDS: HYDROcodone/APAP 5-325MG 1 EACH TAB PO PRN ×3 (01:21→22:35)
[2017-09-22] MEDS: HYDROmorphone 1 MG/ML 1 ML SYRINGE IVP PRN ×2 (04:11→11:51)
[2017-09-22] MEDS: DIAZEPAM 5 MG TAB PO PRN ×2 (06:03→22:34)
[2017-09-22 07:41] LABS: Anisocytosis Slight; Basophils % (A) 0 %; Eosinophils # (A) 0.1 k/uL (0-0.7); Eosinophils % (A) 1 %; HCT 32.4 % (39.0-53.0); HGB 10.7 gm/dL (13.0-17.5); Lymphocytes # (A) 0.5 k/uL (1.0-4.8); Lymphocytes % (A) 5 %; MCH 31.3 pg (25.0-35.0); MCHC 33.1 g/dL (31.0-37.0); MCV 94.7 fL (80.0-100.0); Mean Platelet Volume 7.1; Monocytes # (A) 0.6 k/uL (0-1.0); Monocytes % (A) 7 %; Neutrophils % (A) 86 %; Platelet Count 164 k/uL (150-450); RBC 3.42 m/uL (4.30-5.90); RDW 16.2 % (11.5-15.5); WBC 9.3 k/uL (3.8-10.6)
[2017-09-22 08:07] LABS: Anion Gap 6 mmol/L; Blood Urea Nitrogen 24 mg/dL (9-20); Calcium 8.4 mg/dL (8.4-10.2); Carbon Dioxide 29 mmol/L (22-30); Chloride 97 mmol/L (98-107); Glucose 119 mg/dL (74-99); Potassium 3.3 mmol/L (3.5-5.1); Sodium 132 mmol/L (137-145)
[2017-09-22] MEDS: PANTOPRAZOLE 40 MG TABLET PO SCH (08:15)
[2017-09-22] MEDS: predniSONE 5 MG TAB PO SCH (08:15)
[2017-09-22] MEDS: amLODIPine 5 MG TAB PO SCH (08:15)
[2017-09-22] MEDS: ASPIRIN 325 MG TAB PO SCH ×2 (08:15→22:23)
[2017-09-22] MEDS: METOLAZONE 5 MG TAB PO SCH (08:15)
[2017-09-22] MEDS: ALLOPURINOL 300 MG TAB PO SCH (08:15)
[2017-09-22] MEDS: hydrALAZINE HCL 50 MG TAB PO SCH ×3 (08:15→22:28)
[2017-09-22] MEDS: FUROSEMIDE 40 MG TAB PO SCH ×2 (08:15→15:35)
[2017-09-22] MEDS: SPIRONOLACTONE 25 MG TAB PO SCH (08:15)
[2017-09-22] MEDS: SYMBICORT 160-4.5 MCG INHALER INHALATION SCH ×2 (08:33→20:03)
--- NOTE | 2017-09-22 09:58 | P.PN ---
Subjective Progress Note Date: 09/22/17 Principal diagnosis: Status post right total hip arthroplasty This is a 71 year-old male post right anterior total hip arthroplasty. This is post-op day 1. The patient was evaluated in the recliner chair at the bedside today. The patient denies nausea, vomiting, abdominal pain, shortness of breath , and chest pain this morning. He states his pain is controlled at this time. The patient has been up with physical therapy. Objective - Vital Signs Vital signs: Vital Signs Temp 98.9 F 09/22/17 07:03 Pulse 90 09/22/17 07:03 Resp 18 09/22/17 07:03 BP 125/67 09/22/17 07:03 Pulse Ox 92 L 09/22/17 07:03 Intake & Output 09/21/17 09/22/17 09/22/17 18:59 06:59 18:59 Intake Total 2476 500 Output Total 500 150 Balance 1976 350 Intake: IV 2401 Oral 75 500 Output: Urine 250 150 Estimated Blood Loss 250 Other: Voiding Method Toilet Urinal # Voids 2 3 # Bowel Movements 0 - Exam The patient does not appear in acute distress. Alert and orientated x3. Dressing is clean dry and intact. Incision appears fine with no erythema or active drainage. Calf is soft and nontender. Good foot and ankle motion without difficulty. Sensation and circulatory status is intact.. - Labs CBC & Chem 7: 09/22/17 06:58 09/22/17 06:58 Labs: Abnormal Lab Results - Last 24 Hours (Table) 09/22/17 09/22/17 Range/Units 06:58 06:58 RBC 3.42 L (4.30-5.90) m/uL Hgb 10.7 L (13.0-17.5) gm/dL Hct 32.4 L (39.0-53.0) % RDW 16.2 H (11.5-15.5) % Neutrophils # 8.0 H (1.3-7.7) k/uL Lymphocytes # 0.5 L (1.0-4.8) k/uL Sodium 132 L (137-145) mmol/L Potassium 3.3 L (3.5-5.1) mmol/L Chloride 97 L (98-107) mmol/L BUN 24 H (9-20) mg/dL Glucose 119 H (74-99) mg/dL Assessment and Plan (1) Status post right hip replacement Current Visit: Yes Status: Acute Code(s): Z96.641 - PRESENCE OF RIGHT ARTIFICIAL HIP JOINT SNOMED Code(s): 728659550 (2) Avascular necrosis of bone of right hip Current Visit: Yes Status: Acute Code(s): M87.051 - IDIOPATHIC ASEPTIC NECROSIS OF RIGHT FEMUR SNOMED Code(s): 149404393 (3) Fracture of femoral head Current Visit: Yes Status: Acute Code(s): S72.059A - UNSP FRACTURE OF HEAD OF UNSP FEMUR, INIT FOR CLOS FX SNOMED Code(s): 118571884 Plan: 1. Continue pain control 2. Anticoagulation with Aspirin BID 3. Continue physical therapy and ambulation 4. Anticipate discharge to skilled rehab early next week
[2017-09-22] MEDS: POTASSIUM CHLORIDE ER 20 MEQ TAB.ER PO SCH ×2 (11:51→13:03)
--- NOTE | 2017-09-22 12:01 | P.PN ---
Subjective Progress Note Date: 09/22/17 Principal diagnosis: Right total hip arthroplasty Patient is denying chest pain, shortness breath, nausea, vomiting, dumping or dizziness. Patient is up walking with the walker and her physical therapy supervision. No major events reported by nursing staff Objective - Vital Signs Vital signs: Vital Signs Temp 98.9 F 09/22/17 07:03 Pulse 90 09/22/17 07:03 Resp 18 09/22/17 07:03 BP 125/67 09/22/17 07:03 Pulse Ox 92 L 09/22/17 07:03 Intake & Output 09/21/17 09/22/17 09/22/17 18:59 06:59 18:59 Intake Total 2476 500 Output Total 500 150 Balance 1976 350 Intake: IV 2401 Oral 75 500 Output: Urine 250 150 Estimated Blood Loss 250 Other: Voiding Method Toilet Urinal # Voids 2 3 1 # Bowel Movements 0 0 - Exam Gen.: in stated age, no acute distress Heart: Normal S1-S2 Lungs: Clear to auscultation bilaterally Abdomen: Soft, no tenderness, positive bowel sounds in all 4 quadrant no guarding or rebound Skin: No new rash Psych: Alert and oriented 3 Neuro: No focal deficit - Labs CBC & Chem 7: 09/22/17 06:58 09/22/17 06:58 Labs: Abnormal Lab Results - Last 24 Hours (Table) 09/22/17 09/22/17 Range/Units 06:58 06:58 RBC 3.42 L (4.30-5.90) m/uL Hgb 10.7 L (13.0-17.5) gm/dL Hct 32.4 L (39.0-53.0) % RDW 16.2 H (11.5-15.5) % Neutrophils # 8.0 H (1.3-7.7) k/uL Lymphocytes # 0.5 L (1.0-4.8) k/uL Sodium 132 L (137-145) mmol/L Potassium 3.3 L (3.5-5.1) mmol/L Chloride 97 L (98-107) mmol/L BUN 24 H (9-20) mg/dL Glucose 119 H (74-99) mg/dL Assessment and Plan Assessment: 1. Status post right total hip arthroplasty secondary to severe osteonecrosis of the right femoral had with him oral had collapse and fracture. 2. Anemia related to blood loss. 3. Hypokalemia 4. Gout. 5. Hypertension. 6. Benign prostatic hypertrophy 7. Insomnia. We'll replace potassium repeat blood work in the morning continue physical and neck patient will therapy continue current pain regimen DVT prophylaxis to be resumed by surgery recommendation patient seems to be stable and improving we will continue supportive care continue home medication and consider discharging based on physical therapy recommendation
--- NOTE | 2017-09-22 12:24 | P.PN ---
Subjective Progress Note Date: 09/22/17 Mr. Moreno is a 71-year-old white male patient with past medical's history of moderately severe COPD, malignant tumor of vocal cord, status post radiation, hypertension, hyperlipidemia, BPH, obstructive sleep apnea and CPAP therapy, was brought to the emergency department on 09/18/2017 for evaluation of weakness. Patient was unable to ambulate, having generalized weakness, more so in the legs, in addition patient was experiencing right hip discomfort over the last couple of weeks. He was awaiting surgery on his cervical spine fusion for C5-C6 and C7 by Dr. Orosco, and he was awaiting cardiology and pulmonary clearance for the surgery. Patient did sustain a fall at home a week ago after which the right hip discomfort became severe limiting patient's ability to ambulate, patient is mostly chair bound, and unable to bear weight on the right. Patient was found to have collapse of his femoral head secondary to avascular necrosis. Computed tomography was also completed showing acute fracture through the femoral head. He was recommended to undergo total hip arthroplasty. We're asked to see the patient in consultation for pulmonary clearance. Currently patient is comfortable, denies any pulmonary complaints, he is on 2 L per nasal cannula his pulse ox is 94%, vital signs are stable, lung sounds are diminished, no rhonchi, no wheezing noted, no fever, no chills. Chest x-ray completed in the emergency department showed strandy left basilar atelectasis, but no acute process. The patient is seen again today 09/21/2017 in follow-up on the regular medical floor. He is awake and alert in no acute distress. He is maintaining O2 saturations in the low 90s on room air. He denies any worsening shortness of breath, cough or congestion. He continues on Symbicort and albuterol inhalations. White count 8.5. Hemoglobin 13.3. Creatinine 0.89. The plan is for right hip repair this afternoon. On today evaluation of 09/22/2017, the patient is still postop. Surgical wound site is dry clean and intact. No active pain. No significant respiratory distress. No cough or sputum production. No chest pain. He is on aspirin for DVT prophylaxis. On today's evaluation is using clonazepam 0.7. No signs of any GI or any other external bleeding. The renal Function remains stable. The patient continues to be on Symbicort and known other regimens [id number]. He is also on family does of prednisone as maintenance. No cords. Pain control. He is also on morphine 4 mg every 4 hours on a when necessary basis. Objective - Vital Signs Vital signs: Vital Signs Temp 98.9 F 09/22/17 07:03 Pulse 90 09/22/17 07:03 Resp 18 09/22/17 07:03 BP 125/67 09/22/17 07:03 Pulse Ox 92 L 09/22/17 07:03 Intake & Output 09/21/17 09/22/17 09/22/17 18:59 06:59 18:59 Intake Total 2476 500 Output Total 500 150 Balance 1976 350 Intake: IV 2401 Oral 75 500 Output: Urine 250 150 Estimated Blood Loss 250 Other: Voiding Method Toilet Urinal # Voids 2 3 1 # Bowel Movements 0 0 - Exam GENERAL EXAM: Alert, pleasant, 71-year-old white male, comfortable in no apparent distress. HEAD: Normocephalic/atraumatic. EYES: Normal reaction of pupils, equal size. Conjunctiva pink, sclera white. NOSE: Clear with pink turbinates. THROAT: No erythema or exudates. NECK: No masses, no JVD, no thyroid enlargement, no adenopathy. CHEST: No chest wall deformity. Symmetrical expansion. LUNGS: Breath sounds bilaterally, with no rhonchi, no wheezing no rales. CVS: Regular rate and rhythm, normal S1 and S2, no gallops, no murmurs, no rubs ABDOMEN: Soft, nontender. No hepatosplenomegaly, normal bowel sounds, no guarding or rigidity. EXTREMITIES: No clubbing, no edema, no cyanosis, 2+ pulses and upper and lower extremities. Chronic venous stasis changes noted in bilateral lower extremities MUSCULOSKELETAL: Muscle strength and tone normal. SPINE: No scoliosis or deformity SKIN: No rashes. The surgical wound site over the right hip area dry clean and intact. CENTRAL NERVOUS SYSTEM: Alert and oriented -3. No focal deficits, tone is normal in all 4 extremities. PSYCHIATRIC: Alert and oriented -3. Appropriate affect. Intact judgment and insight. - Labs CBC & Chem 7: 09/22/17 06:58 09/22/17 06:58 Labs: Abnormal Lab Results - Last 24 Hours (Table) 08/11/18 08/11/18 Range/Units 06:58 06:58 RBC 3.42 L (4.30-5.90) m/uL Hgb 10.7 L (13.0-17.5) gm/dL Hct 32.4 L (39.0-53.0) % RDW 16.2 H (11.5-15.5) % Neutrophils # 8.0 H (1.3-7.7) k/uL Lymphocytes # 0.5 L (1.0-4.8) k/uL Sodium 132 L (137-145) mmol/L Potassium 3.3 L (3.5-5.1) mmol/L Chloride 97 L (98-107) mmol/L BUN 24 H (9-20) mg/dL Glucose 119 H (74-99) mg/dL Assessment and Plan Plan: Assessment: #1. Avascular necrosis of bone of right hip, and fracture of femoral head post fall, postop day #1. #2. Osteoarthritis of right hip #3. Weakness, difficulty with ambulation, right hip pain related to the above #4. Moderately severe COPD, with baseline FEV1 of 57% of predicted consistent with Gold stage II COPD #5. Obstructive sleep apnea on CPAP therapy #6. History of vocal cord more, status post radiation and chemotherapy, currently in remission #7. Hypertension, hyperlipidemia #8. BPH #9. Gout #10. GERD/reflux Plan: Patient is postop day #1. The patient underwent right hip arthroplasty for severe osteonecrosis of the right femoral head. Pain is under good control. Is on [place]. Is on morphine. We'll monitor the hemoglobin. Pulmonary status is stable. Continue Symbicort. Continue 5 mg of prednisone as maintenance. Also is on the case. Aspirin for DVT prophylaxis. We'll follow.
--- NOTE | 2017-09-22 15:34 | XR ---
Fluoroscopy INDICATION: Pain FINDINGS: Fluoroscopy time: 44 seconds. Images obtained: 2. IMPRESSIONS: 1. Documentation of fluoroscopy.
[2017-09-22] MEDS: SODIUM CHLORIDE 0.9% 1,000 ML IV SCH (15:38)
[2017-09-22] MEDS: IPRATROPIUM 0.5 MG/2.5 ML NEBU INHALATION SCH ×3 (15:39→20:05)
[2017-09-22] MEDS: TAMSULOSIN 0.4 MG CAP.ER.24H PO SCH (22:23)
[2017-09-22] MEDS: ATORVASTATIN 10 MG TAB PO SCH (22:23)
[2017-09-23] MEDS: SYMBICORT 160-4.5 MCG INHALER INHALATION SCH ×2 (07:05→19:06)
[2017-09-23] MEDS: IPRATROPIUM 0.5 MG/2.5 ML NEBU INHALATION SCH ×3 (07:08→19:07)
[2017-09-23] MEDS: LACTATED RINGERS 1,000 ML IV SCH (07:31)
[2017-09-23] MEDS: predniSONE 5 MG TAB PO SCH (07:35)
[2017-09-23] MEDS: hydrALAZINE HCL 50 MG TAB PO SCH ×3 (07:35→23:19)
[2017-09-23] MEDS: ASPIRIN 325 MG TAB PO SCH ×2 (07:35→20:35)
[2017-09-23] MEDS: PANTOPRAZOLE 40 MG TABLET PO SCH (07:35)
[2017-09-23] MEDS: FUROSEMIDE 40 MG TAB PO SCH ×2 (07:35→16:07)
[2017-09-23] MEDS: amLODIPine 5 MG TAB PO SCH (07:35)
[2017-09-23] MEDS: ALLOPURINOL 300 MG TAB PO SCH (07:35)
[2017-09-23] MEDS: NYSTATIN 100,000 UNIT/ML SUSP 500,000 UNIT/5 ML CUP PO SCH ×4 (07:35→23:20)
[2017-09-23] MEDS: METOLAZONE 5 MG TAB PO SCH (07:35)
[2017-09-23] MEDS: SPIRONOLACTONE 25 MG TAB PO SCH (07:36)
--- NOTE | 2017-09-23 09:29 | P.PN ---
Subjective Progress Note Date: 09/23/17 Principal diagnosis: Status post right total hip arthroplasty This is a 71 year-old male post right anterior total hip arthroplasty. This is post-op day 2. The patient was evaluated in the recliner chair at the bedside today. The patient denies nausea, vomiting, abdominal pain, shortness of breath , and chest pain this morning. He states his pain is controlled but is having occasional muscle spasms in his thigh. The patient has been up with physical therapy. Objective - Vital Signs Vital signs: Vital Signs Temp 97.7 F 09/23/17 07:00 Pulse 90 09/23/17 07:00 Resp 20 09/23/17 07:00 BP 124/69 09/23/17 07:00 Pulse Ox 98 09/23/17 07:06 Intake & Output 09/22/17 09/23/17 09/23/17 18:59 06:59 18:59 Intake Total 200 240 Output Total 275 350 Balance -275 -150 240 Intake: Oral 200 240 Output: Urine 275 350 Other: Voiding Method Toilet Urinal # Voids 1 0 # Bowel Movements 0 0 - Exam The patient does not appear in acute distress. Alert and orientated x3. Dressing is clean dry and intact. Calf is soft and nontender. Good foot and ankle motion without difficulty. Sensation and circulatory status is intact.. - Labs CBC & Chem 7: 09/22/17 06:58 09/22/17 06:58 Assessment and Plan (1) Status post right hip replacement Current Visit: Yes Status: Acute Code(s): Z96.641 - PRESENCE OF RIGHT ARTIFICIAL HIP JOINT SNOMED Code(s): 995877135 (2) Avascular necrosis of bone of right hip Current Visit: Yes Status: Acute Code(s): M87.051 - IDIOPATHIC ASEPTIC NECROSIS OF RIGHT FEMUR SNOMED Code(s): 416037538 (3) Fracture of femoral head Current Visit: Yes Status: Acute Code(s): S72.059A - UNSP FRACTURE OF HEAD OF UNSP FEMUR, INIT FOR CLOS FX SNOMED Code(s): 609161383 Plan: 1. Continue pain control 2. Anticoagulation with Aspirin BID 3. Continue physical therapy and ambulation 4. Anticipate discharge to skilled rehab early next week
[2017-09-23] MEDS: HYDROcodone/APAP 5-325MG 1 EACH TAB PO PRN ×2 (10:21→16:07)
[2017-09-23] MEDS: DIAZEPAM 5 MG TAB PO PRN (12:20)
[2017-09-23 12:29] LABS: Basophils % (A) 0 %; Eosinophils % (A) 0 %; HCT 31.8 % (39.0-53.0); HGB 10.8 gm/dL (13.0-17.5); Lymphocytes # (A) 0.4 k/uL (1.0-4.8); Lymphocytes % (A) 3 %; MCH 31.5 pg (25.0-35.0); MCHC 33.9 g/dL (31.0-37.0); MCV 92.8 fL (80.0-100.0); Mean Platelet Volume 8.8; Monocytes # (A) 0.7 k/uL (0-1.0); Monocytes % (A) 6 %; Neutrophils % (A) 90 %; Platelet Count 177 k/uL (150-450); RBC 3.43 m/uL (4.30-5.90); RDW 15.9 % (11.5-15.5); WBC 12.3 k/uL (3.8-10.6)
[2017-09-23 12:43] LABS: Albumin 3.1 g/dL (3.5-5.0); Calcium 8.5 mg/dL (8.4-10.2); Total Bilirubin 0.8 mg/dL (0.2-1.3); Total Protein 5.6 g/dL (6.3-8.2)
--- NOTE | 2017-09-23 14:14 | P.PN ---
Subjective Progress Note Date: 09/23/17 Mr. Moreno is a 71-year-old white male patient with past medical's history of moderately severe COPD, malignant tumor of vocal cord, status post radiation, hypertension, hyperlipidemia, BPH, obstructive sleep apnea and CPAP therapy, was brought to the emergency department on 09/18/2017 for evaluation of weakness. Patient was unable to ambulate, having generalized weakness, more so in the legs, in addition patient was experiencing right hip discomfort over the last couple of weeks. He was awaiting surgery on his cervical spine fusion for C5-C6 and C7 by Dr. Orosco, and he was awaiting cardiology and pulmonary clearance for the surgery. Patient did sustain a fall at home a week ago after which the right hip discomfort became severe limiting patient's ability to ambulate, patient is mostly chair bound, and unable to bear weight on the right. Patient was found to have collapse of his femoral head secondary to avascular necrosis. Computed tomography was also completed showing acute fracture through the femoral head. He was recommended to undergo total hip arthroplasty. We're asked to see the patient in consultation for pulmonary clearance. Currently patient is comfortable, denies any pulmonary complaints, he is on 2 L per nasal cannula his pulse ox is 94%, vital signs are stable, lung sounds are diminished, no rhonchi, no wheezing noted, no fever, no chills. Chest x-ray completed in the emergency department showed strandy left basilar atelectasis, but no acute process. The patient is seen again today 09/21/2017 in follow-up on the regular medical floor. He is awake and alert in no acute distress. He is maintaining O2 saturations in the low 90s on room air. He denies any worsening shortness of breath, cough or congestion. He continues on Symbicort and albuterol inhalations. White count 8.5. Hemoglobin 13.3. Creatinine 0.89. The plan is for right hip repair this afternoon. On today evaluation of 09/22/2017, the patient is still postop. Surgical wound site is dry clean and intact. No active pain. No significant respiratory distress. No cough or sputum production. No chest pain. He is on aspirin for DVT prophylaxis. On today's evaluation is using clonazepam 0.7. No signs of any GI or any other external bleeding. The renal Function remains stable. The patient continues to be on Symbicort and known other regimens [id number]. He is also on family does of prednisone as maintenance. No cords. Pain control. He is also on morphine 4 mg every 4 hours on a when necessary basis. On today's evaluation of 09/23/2017, the patient is having some spasm in the right thigh. Surgical wound site is dry clean and intact. The patient was given Valium 5 mg by mouth 3 times a day for muscle spasms. Almost as a stable. No worsening shortness of breath. He is on a 5 L of prednisone regarding COPD along with DuoNeb nebulized seems [id number] and Symbicort as maintenance. The patient's has a white cell count of 12.3 and stable. The patient's hemoglobin is at 10.8 and stable. Renal function is off with a creatinine of 1.3 on today's evaluation. Objective - Vital Signs Vital signs: Vital Signs Temp 97.7 F 09/23/17 07:00 Pulse 90 09/23/17 07:00 Resp 20 09/23/17 07:00 BP 124/69 09/23/17 07:00 Pulse Ox 98 09/23/17 07:06 Intake & Output 09/22/17 09/23/17 09/23/17 18:59 06:59 18:59 Intake Total 200 240 Output Total 275 350 Balance -275 -150 240 Intake: Oral 200 240 Output: Urine 275 350 Other: Voiding Method Toilet Urinal # Voids 1 0 # Bowel Movements 0 0 - Exam GENERAL EXAM: Alert, pleasant, 71-year-old white male, comfortable in no apparent distress. HEAD: Normocephalic/atraumatic. EYES: Normal reaction of pupils, equal size. Conjunctiva pink, sclera white. NOSE: Clear with pink turbinates. THROAT: No erythema or exudates. NECK: No masses, no JVD, no thyroid enlargement, no adenopathy. CHEST: No chest wall deformity. Symmetrical expansion. LUNGS: Breath sounds bilaterally, with no rhonchi, no wheezing no rales. CVS: Regular rate and rhythm, normal S1 and S2, no gallops, no murmurs, no rubs ABDOMEN: Soft, nontender. No hepatosplenomegaly, normal bowel sounds, no guarding or rigidity. EXTREMITIES: No clubbing, no edema, no cyanosis, 2+ pulses and upper and lower extremities. Chronic venous stasis changes noted in bilateral lower extremities MUSCULOSKELETAL: Muscle strength and tone normal. SPINE: No scoliosis or deformity SKIN: No rashes. The surgical wound site over the right hip area dry clean and intact. CENTRAL NERVOUS SYSTEM: Alert and oriented -3. No focal deficits, tone is normal in all 4 extremities. PSYCHIATRIC: Alert and oriented -3. Appropriate affect. Intact judgment and insight. - Labs CBC & Chem 7: 09/23/17 12:18 09/23/17 12:18 Labs: Abnormal Lab Results - Last 24 Hours (Table) 09/23/17 09/23/17 Range/Units 12:18 12:18 WBC 12.3 H (3.8-10.6) k/uL RBC 3.43 L (4.30-5.90) m/uL Hgb 10.8 L (13.0-17.5) gm/dL Hct 31.8 L (39.0-53.0) % RDW 15.9 H (11.5-15.5) % Neutrophils # 11.0 H (1.3-7.7) k/uL Lymphocytes # 0.4 L (1.0-4.8) k/uL Sodium 131 L (137-145) mmol/L Chloride 95 L (98-107) mmol/L BUN 34 H (9-20) mg/dL Creatinine 1.32 H (0.66-1.25) mg/dL Glucose 121 H (74-99) mg/dL Total Protein 5.6 L (6.3-8.2) g/dL Albumin 3.1 L (3.5-5.0) g/dL Assessment and Plan Plan: Assessment: #1. Avascular necrosis of bone of right hip, and fracture of femoral head post fall, postop day #2. The patient is having pain and spasm in the right thigh area and the surgical site is dry clean and intact. #2. Osteoarthritis of right hip #3. Weakness, difficulty with ambulation, right hip pain related to the above #4. Moderately severe COPD, with baseline FEV1 of 57% of predicted consistent with Gold stage II COPD #5. Obstructive sleep apnea on CPAP therapy #6. History of vocal cord more, status post radiation and chemotherapy, currently in remission #7. Hypertension, hyperlipidemia #8. BPH #9. Gout #10. GERD/reflux #11 acute kidney injury in the creatinine is up to 1.3 Plan: Continue routine postoperative care. Add half normal state rate of 75 mL an hour and monitor renal function. Continue the breathing treatments. Continue incentive spirometer. 5 mg of prednisone as maintenance. Management of the wound and the post surgical spasm of the thigh by orthopedic surgery. Aspirin for DVT prophylaxis. We'll continue to follow.
[2017-09-23] MEDS: SODIUM CHLORIDE 0.45% 1,000 ML IV SCH (14:21)
--- NOTE | 2017-09-23 19:06 | P.PN ---
Subjective Progress Note Date: 09/23/17 Principal diagnosis: Right total hip arthroplasty Patient is denying chest pain, shortness breath, nausea, vomiting, dumping or dizziness. Patient is up walking with the walker and her physical therapy supervision. No major events reported by nursing staff Objective - Vital Signs Vital signs: Vital Signs Temp 97.7 F 09/23/17 14:20 Pulse 83 09/23/17 14:20 Resp 18 09/23/17 14:20 BP 112/55 09/23/17 14:20 Pulse Ox 95 09/23/17 14:20 Intake & Output 09/23/17 09/23/17 09/24/17 06:59 18:59 06:59 Intake Total 200 400 Output Total 350 500 Balance -150 -100 Intake: IV 160 Sodium Chloride 0.9% 1, 160 000 ml @ 20 mls/hr IV . Q24H [facility] Rx#:[id number] Oral 200 240 Output: Urine 350 500 Other: Voiding Method Toilet Urinal # Voids 0 2 # Bowel Movements 0 - Exam Gen.: in stated age, no acute distress Heart: Normal S1-S2 Lungs: Clear to auscultation bilaterally Abdomen: Soft, no tenderness, positive bowel sounds in all 4 quadrant no guarding or rebound Skin: No new rash Psych: Alert and oriented 3 Neuro: No focal deficit - Labs CBC & Chem 7: 09/23/17 12:18 09/23/17 12:18 Labs: Abnormal Lab Results - Last 24 Hours (Table) 09/23/17 09/23/17 Range/Units 12:18 12:18 WBC 12.3 H (3.8-10.6) k/uL RBC 3.43 L (4.30-5.90) m/uL Hgb 10.8 L (13.0-17.5) gm/dL Hct 31.8 L (39.0-53.0) % RDW 15.9 H (11.5-15.5) % Neutrophils # 11.0 H (1.3-7.7) k/uL Lymphocytes # 0.4 L (1.0-4.8) k/uL Sodium 131 L (137-145) mmol/L Chloride 95 L (98-107) mmol/L BUN 34 H (9-20) mg/dL Creatinine 1.32 H (0.66-1.25) mg/dL Glucose 121 H (74-99) mg/dL Total Protein 5.6 L (6.3-8.2) g/dL Albumin 3.1 L (3.5-5.0) g/dL Assessment and Plan Assessment: 1. Status post right total hip arthroplasty secondary to severe osteonecrosis of the right femoral had with him oral had collapse and fracture. 2. Anemia related to blood loss. 3. Hypokalemia 4. Gout. 5. Hypertension. 6. Benign prostatic hypertrophy 7. Insomnia. Blood work is still pending this morning discussed with the nursing staff and replace potassium if needed continue physical and neck patient will therapy continue current pain regimen DVT prophylaxis to be resumed by surgery recommendation patient seems to be stable and improving we will continue supportive care continue home medication and consider discharging based on physical therapy recommendation
[2017-09-23] MEDS: MELATONIN 5 MG TABLET PO SCH (20:34)
[2017-09-23] MEDS: TAMSULOSIN 0.4 MG CAP.ER.24H PO SCH (20:34)
[2017-09-23] MEDS: SENNOSIDES-DOCUSATE SODIUM 1 EACH TAB PO SCH (20:35)
[2017-09-23] MEDS: ATORVASTATIN 10 MG TAB PO SCH (20:35)
[2017-09-23 23:46] VITALS: BP 124/70; PULSE 81; TEMP 98.5
[2017-09-24] MEDS: SODIUM CHLORIDE 0.45% 1,000 ML IV SCH (03:48)
[2017-09-24] MEDS: DIAZEPAM 5 MG TAB PO PRN ×2 (04:46→11:56)
[2017-09-24] MEDS: IPRATROPIUM 0.5 MG/2.5 ML NEBU INHALATION SCH ×2 (07:25→11:22)
[2017-09-24] MEDS: SYMBICORT 160-4.5 MCG INHALER INHALATION SCH (07:26)
--- NOTE | 2017-09-24 08:24 | P.DS ---
Providers Date of admission: 09/19/17 14:35 Expected date of discharge: 09/24/17 Attending physician: Ray Gutierrez Consults: 09/19/17 14:35 Consult Physician Urgent Consulting Provider: Konrad Reynoso Consult Reason/Comments: medical care and clearance Do you want consulting provider notified?: Yes 09/19/17 18:00 Consult Physician Routine Consulting Provider: Talat Watt Consult Reason/Comments: cardio clearance for surgery Do you want consulting provider notified?: Yes Consult Physician Urgent Consulting Provider: Nikolas Arce Consult Reason/Comments: clearance for surgery Do you want consulting provider notified?: Yes Primary care physician: Konrad Reynoso - Discharge Diagnosis(es) (1) Avascular necrosis of bone of right hip Current Visit: Yes Status: Acute (2) Fracture of femoral head Current Visit: Yes Status: Acute (3) Status post right hip replacement Current Visit: Yes Status: Acute Hospital Course: This is a 45-[id number][age]-male with known history of osteonecrosis of the right femoral head with femoral head collapse. Patient sustained a femoral head fracture after a fall one week ago. The patient presents for evaluation. After discussion and consideration patient elects to proceed with total hip arthroplasty. The patient is seen preoperatively by Dr. Gutierrez and medically cleared for surgery by internal medicine. Patient is admitted to [facility] on 09/19/2017 and total hip arthroplasty is performed on 09/21/2017. The procedures performed without complication or sequelae. The patient is doing well postoperatively. Labs and vital signs are stable on day of discharge. On day of discharge patient's hip incision is healing well. There is minimal erythema. There is no drainage noted at this time. There is minimal soft tissue swelling to the hip and thigh. Patient has full foot and ankle motion without difficulty or pain. Neurovascular status to the right lower extremity is intact. Patient is discharged to rehab in good condition. Please see med rec for accurate list of home medications. Plan - Discharge Summary Discharge Rx Participant: No New Discharge Prescriptions: New Aspirin 325 mg PO BID #60 tab Diazepam [Valium] 5 mg PO BID #14 tab HYDROcodone/APAP 5-325MG [[place] 5-325] 1 - 2 tab PO Q4-6H PRN #84 tab PRN Reason: Pain Sennosides [Senokot] 1 tab PO BID #60 tablet No Action predniSONE 5 mg PO QAM Temazepam [Restoril] 30 mg PO HS PRN PRN Reason: Insomnia Tamsulosin HCl [Flomax] 0.4 mg PO HS Atorvastatin [Lipitor] 10 mg PO HS hydrALAZINE HCL [Apresoline] 100 mg PO TID amLODIPine [Norvasc] 5 mg PO QAM Spironolactone [Aldactone] 25 mg PO QAM Furosemide [Lasix] 40 mg PO BID B Complex-Vit C-Vit E-Zinc [Z-Bec] 1 tab PO DAILY Allopurinol [Zyloprim] 300 mg PO QAM Albuterol Sulfate [Proventil Hfa] 3 puff INHALATION RT-BID Omeprazole [PriLOSEC] 40 mg PO QAM Metolazone [Zaroxolyn] 5 mg PO DAILY PRN PRN Reason: Edema diphenhydrAMINE [Benadryl] 50 mg PO HS Tiotropium 18 Mcg/Puff [Spiriva] 1 cap INHALATION RT-DAILY Budesonide/Formoterol Fumarate [Symbicort 160-4.5 Mcg Inhaler] 1 puff INHALATION RT-BID Discharge Medication List Albuterol Sulfate [Proventil Hfa] 3 puff INHALATION RT-BID 09/16/14 [History] Allopurinol [Zyloprim] 300 mg PO QAM 09/16/14 [History] Atorvastatin [Lipitor] 10 mg PO HS 09/16/14 [History] B Complex-Vit C-Vit E-Zinc [Z-Bec] 1 tab PO DAILY 09/16/14 [History] Furosemide [Lasix] 40 mg PO BID 09/16/14 [History] Spironolactone [Aldactone] 25 mg PO QAM 09/16/14 [History] Tamsulosin HCl [Flomax] 0.4 mg PO HS 09/16/14 [History] Temazepam [Restoril] 30 mg PO HS PRN 09/16/14 [History] amLODIPine [Norvasc] 5 mg PO QAM 09/16/14 [History] hydrALAZINE HCL [Apresoline] 100 mg PO TID 09/16/14 [History] predniSONE 5 mg PO QAM 09/16/14 [History] Omeprazole [PriLOSEC] 40 mg PO QAM 08/07/16 [History] Budesonide/Formoterol Fumarate [Symbicort 160-4.5 Mcg Inhaler] 1 puff INHALATION RT-BID 09/19/17 [History] Metolazone [Zaroxolyn] 5 mg PO DAILY PRN 09/19/17 [History] Tiotropium 18 Mcg/Puff [Spiriva] 1 cap INHALATION RT-DAILY 09/19/17 [History] diphenhydrAMINE [Benadryl] 50 mg PO HS 09/19/17 [History] Aspirin 325 mg PO BID #60 tab 09/24/17 [Rx] Diazepam [Valium] 5 mg PO BID #14 tab 09/24/17 [Rx] HYDROcodone/APAP 5-325MG [[place] 5-325] 1 - 2 tab PO Q4-6H PRN #84 tab 09/24/17 [ Rx] Sennosides [Senokot] 1 tab PO BID #60 tablet 09/24/17 [Rx] Follow up Appointment(s)/Referral(s): Lucia George MD [Medical Doctor] - 1 Week Gene Allred [NON-STAFF] - 1 Week Ray Gutierrez DO [Doctor of Osteopathic Medicine] - 10 Days Patient Instructions/Handouts: ORIF of Hip Fracture (DC) Activity/Diet/Wound Care/Special Instructions: Low fat diet. Fall precautions. Weightbearing as tolerated with walker Leave dressing intact. Dressing may be removed by home care nurse in 10 days. May shower with dressing on. Follow-up with [facility] in 2 weeks, please call with any questions or concerns [phone] Discharge Disposition: TRANSFER TO SNF/ECF
[2017-09-24] MEDS: NYSTATIN 100,000 UNIT/ML SUSP 500,000 UNIT/5 ML CUP PO SCH ×2 (08:47→11:56)
[2017-09-24] MEDS: ASPIRIN 325 MG TAB PO SCH (08:47)
[2017-09-24] MEDS: PANTOPRAZOLE 40 MG TABLET PO SCH (08:47)
[2017-09-24] MEDS: ALLOPURINOL 300 MG TAB PO SCH (08:47)
[2017-09-24] MEDS: predniSONE 5 MG TAB PO SCH (08:48)
[2017-09-24] MEDS: hydrALAZINE HCL 50 MG TAB PO SCH (08:48)
[2017-09-24] MEDS: FUROSEMIDE 40 MG TAB PO SCH (08:48)
[2017-09-24] MEDS: SPIRONOLACTONE 25 MG TAB PO SCH (08:49)
[2017-09-24] MEDS: amLODIPine 5 MG TAB PO SCH (08:49)
[2017-09-24] MEDS: METOLAZONE 5 MG TAB PO SCH (08:49)
[2017-09-24] MEDS: HYDROcodone/APAP 5-325MG 1 EACH TAB PO PRN ×2 (09:10→13:41)
[2017-09-24] MEDS ORDERED: NA PHOS,M-B/NA PHOS,DI-BA 133 ML ENEMA RECTAL STA (09:23)
[2017-09-24 09:39] LABS: Anisocytosis Slight; Basophils % (A) 0 %; Eosinophils # (A) 0.1 k/uL (0-0.7); Eosinophils % (A) 1 %; HCT 29.8 % (39.0-53.0); HGB 10.2 gm/dL (13.0-17.5); Lymphocytes # (A) 0.6 k/uL (1.0-4.8); Lymphocytes % (A) 6 %; MCH 31.6 pg (25.0-35.0); MCHC 34.1 g/dL (31.0-37.0); MCV 92.7 fL (80.0-100.0); Mean Platelet Volume 7.7; Monocytes # (A) 0.6 k/uL (0-1.0); Monocytes % (A) 7 %; Neutrophils # (A) 8.3 k/uL (1.3-7.7); Neutrophils % (A) 85 %; Platelet Count 184 k/uL (150-450); RBC 3.21 m/uL (4.30-5.90); RDW 16.2 % (11.5-15.5); WBC 9.8 k/uL (3.8-10.6)
[2017-09-24 09:54] LABS: Albumin 3.1 g/dL (3.5-5.0); Calcium 8.3 mg/dL (8.4-10.2); Potassium 3.4 mmol/L (3.5-5.1); Total Bilirubin 0.7 mg/dL (0.2-1.3); Total Protein 5.6 g/dL (6.3-8.2)
[2017-09-24 11:22] VITALS: RESP 16
--- NOTE | 2017-09-24 11:35 | P.PN ---
Subjective Progress Note Date: 09/24/17 Principal diagnosis: Severe COPD Progress note dated 09/24/2017 This is a 71-year-old male with a history of avascular necrosis of the right hip. The patient is postop day #3 status post fall and hip fracture. The patient is doing well postsurgically and will be discharged probably to some soda rehab facility. The patient has a history of moderately severe COPD sleep apnea syndrome vocal cord cancer, status post chemoradiation hypertension BPH gout gastroesophageal reflux disease and acute kidney injury. I sat in the room with the patient and his . He is excited about being discharged. He is very limited in what he can do at this time. 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 Also seeing one of the explosives handler over at [facility]. Finally, we'll need a multilevel cervical fusion in the future. The patient states that currently his breathing is stable and pretty much at baseline. He does not require oxygen at home. Objective - Vital Signs Vital signs: Vital Signs Temp 98.5 F 09/23/17 22:00 Pulse 81 09/24/17 08:00 Resp 16 09/24/17 08:00 BP 124/70 09/23/17 22:00 Pulse Ox 99 09/23/17 22:00 Intake & Output 09/23/17 09/24/17 09/24/17 18:59 06:59 18:59 Intake Total 400 Output Total 500 500 Balance -100 -500 Intake: IV 160 Sodium Chloride 0.9% 1, 160 000 ml @ 20 mls/hr IV . Q24H [facility] Rx#:[id number] Oral 240 Output: Urine 500 500 Other: # Voids 2 5 # Bowel Movements 0 - Exam No acute distress, oriented 3. The patient is very hoarse from his radiation to the vocal cord area. HEENT examination is grossly unremarkable. Mucous membranes are moist. No oral lesions. Neck supple. Full range of motion. No adenopathy thyromegaly or neck vein distention. Cardiovascular examination reveals regular rhythm rate. S1-S2 normal. No S3 or S4. No discernible murmur noted. Lungs reveal clear breath sounds. Her sounds are equal bilaterally. No adventitious lung sounds including wheezes rhonchi or crackles. Breath sounds are diminished throughout. Abdomen soft bowel sounds are heard. No masses or tenderness. Extremities are intact. No cyanosis clubbing or edema. Skin is without rash or lesion. Neurologic examination is brief but nonfocal. - Labs CBC & Chem 7: 09/24/17 09:21 09/24/17 09:21 Labs: Abnormal Lab Results - Last 24 Hours (Table) 09/23/17 09/23/17 09/24/17 Range/Units 12:18 12:18 09:21 WBC 12.3 H (3.8-10.6) k/uL RBC 3.43 L 3.21 L (4.30-5.90) m/uL Hgb 10.8 L 10.2 L (13.0-17.5) gm/dL Hct 31.8 L 29.8 L (39.0-53.0) % RDW 15.9 H 16.2 H (11.5-15.5) % Neutrophils # 11.0 H 8.3 H (1.3-7.7) k/uL Lymphocytes # 0.4 L 0.6 L (1.0-4.8) k/uL Sodium 131 L (137-145) mmol/L Potassium (3.5-5.1) mmol/L Chloride 95 L (98-107) mmol/L BUN 34 H (9-20) mg/dL Creatinine 1.32 H (0.66-1.25) mg/dL Glucose 121 H (74-99) mg/dL Calcium (8.4-10.2) mg/dL Total Protein 5.6 L (6.3-8.2) g/dL Albumin 3.1 L (3.5-5.0) g/dL 09/24/17 Range/Units 09:21 WBC (3.8-10.6) k/uL RBC (4.30-5.90) m/uL Hgb (13.0-17.5) gm/dL Hct (39.0-53.0) % RDW (11.5-15.5) % Neutrophils # (1.3-7.7) k/uL Lymphocytes # (1.0-4.8) k/uL Sodium 131 L (137-145) mmol/L Potassium 3.4 L (3.5-5.1) mmol/L Chloride 92 L (98-107) mmol/L BUN 32 H (9-20) mg/dL Creatinine (0.66-1.25) mg/dL Glucose 130 H (74-99) mg/dL Calcium 8.3 L (8.4-10.2) mg/dL Total Protein 5.6 L (6.3-8.2) g/dL Albumin 3.1 L (3.5-5.0) g/dL Assessment and Plan Assessment: Assessment Status post avascular necrosis of the right hip with hip fracture and subsequent surgical repair, postop day #3 DJD of the right hip. Moderately severe COPD with an FEV1 that is 57% of predicted Sleep apnea syndrome, currently on CPAP therapy Vocal cord cancer, status post radiation and chemotherapy with resultant hoarseness Hypertension by history Hyperlipidemia by history BPH Gout Gastroesophageal reflux disease Acute kidney injury Plan: Plan dated 09/24/2017 The patient will likely be discharged home in the next 24-48 hours. He actually will not go home but rather to some sort of nursing facility. Apparently the family is looking at inpatient rehab at [facility]. Currently the patient's COPD is relatively stable. He will see me in follow-up in the office. We'll have to do a preop clearance before any multilevel cervical fusion. Prognosis is guarded. We will continue to follow this patient. Time with Patient: Less than 30
--- NOTE | 2017-09-25 15:11 | P.PN ---
Subjective Progress Note Date: 09/24/17 The 71 year old male patient of Dr. 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 Sparks, history of hyperlipidemia, hypertension, history of lower extremity edema though patient denies history of heart failure, history of osteoarthritis, sleep apnea wears CPAP at night presents in with the acute onset of lower extremity weakness associated with urinary incontinence that started today. According to the patient she she notices patient walking on the toes on the right hip for the past 6 weeks but patient also underwent toe amputation on the right second toe by Dr. Moulton and was nonweightbearing for 3 weeks. Patient was wheelchair bound couple of weeks ago and has started using cane and walker for the past 3 weeks. He has been sleeping in the chair as he is unable to lay flat due to the hip pain. Patient did not seek any medical attention for the hip pain but he was concerned about his neck pain for which he underwent MRI of the neck which showed spinal cord compression at the level of C5-C6 and C7 and was planning to undergo surgery under Dr. Moctezuma and was due for pulmonary and medical clearance by Dr. Reynoso for the surgery to be performed in the neck. Since the hip pain got worse and then patient was unable to put weight on his leg patient's brought the patient to the ER. Vitals were stable. Pulse 75 , respiratory rate 18, blood pressure 160/69 saturating on 98% on 2 L. X-ray and lumbar x-ray was obtained that suggested end-stage right hip osteoarthrosis or collapse of the weightbearing portion of the femoral head and secondary super only true joint subluxation moderate osteoarthritis of the left hip was seen. Followed by hip CT that suggested end-stage osteoarthropathy with associated vertical acute stress fracture to the superior femoral head as suspected on radiograph. Lumbar x-ray suggested moderate multilevel disc and endplate degenerative disc with past hypertrophic face arthropathy with grade 1 spondylolisthesis throughout the spine. Aneurysm of the abdominal aorta seen at 3.4 cm . The patient is admitted for orthopedic surgery. 09/20: Patient has been seen by Dr. Watt from cardiology and cleared for surgery. Pulmonary clearance is still pending. Echocardiogram reveals EF of 50-55%, difficult study, trace tricuspid regurgitation. Patient is tentatively scheduled for total hip arthroplasty on Sunday, 09/21. Patient states he only slept for 4 hours last night. Pain medication did help is not sure if melatonin helped. His last bowel movement was one and half day ago and he would like a suppository now. Patient and are planning for [facility] for subacute rehab following surgery. 09/21: Patient states that his pain is terrible today. He is on morphine and hot packs. He is scheduled for surgery this afternoon. 09/22: Patient is denying chest pain, shortness breath, nausea, vomiting, dumping or dizziness. Patient is up walking with the walker and her physical therapy supervision. No major events reported by nursing staff 09/23: Patient is denying chest pain, shortness breath, nausea, vomiting, dumping or dizziness. Patient is up walking with the walker and her physical therapy supervision. No major events reported by nursing staff. 09/24: Patient is scheduled for discharge to subacute rehab at [facility]. Medication reconciliation has been completed. Patient is complaining of no bowel movement for 4 days for reports of fleets enema has been ordered prior to discharge. He is complaining of weakness to the right leg. Yesterday, he was started on IV fluids due to acute kidney injury with BUN of 34 and creatinine 1.32. This is improved to 32 and 0.98. Hemoglobin today is 10.2. Patient is scheduled for discharge today. Objective - Vital Signs Vital signs: Vital Signs Temp 98.5 F 09/23/17 22:00 Pulse 81 09/24/17 08:00 Resp 16 09/24/17 08:00 BP 124/70 09/23/17 22:00 Pulse Ox 99 09/23/17 22:00 Intake & Output 09/24/17 09/25/17 09/25/17 18:59 06:59 18:59 Intake Total 240 Balance 240 Intake: Oral 240 Other: # Voids 2 # Bowel Movements 1 - Exam General appearance: cooperative, no acute distress, obese - EENT Eyes: anicteric sclerae, PERRLA, normal appearance ENT: hearing grossly normal - Neck Neck: no lymphadenopathy, normal ROM, no other, no rigidity, no stridor, no thyromegaly - Respiratory Respiratory: bilateral: Crackles at the bases otherwise clear to auscultate - Cardiovascular Rhythm: regular Heart sounds: normal: S1, S2 Abnormal Heart Sounds: no systolic murmur, no diastolic murmur, no rub, no S3 Gallop, no S4 Gallop, no click, bilateral 1+ pitting edema - Gastrointestinal General gastrointestinal: normal bowel sounds, soft - Integumentary Integumentary: no rash bilateral lower extremity redness and edema positive peripheral pulses 2+ - Neurologic Neurologic: CNII-XII intact - Musculoskeletal Musculoskeletal: - Psychiatric Psychiatric: A&O x's 3, appropriate affect - Labs CBC & Chem 7: 09/24/17 09:21 09/24/17 09:21 Assessment and Plan Plan: #1 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 Continue pain control. Cardiology and pulmonary consult appreciated. #2 gout, stable- continue allopurinol 300 mg hold colchicine continue prednisone 5 mg by mouth daily #3 hypertension - continue amlodipine 5 mg by mouth daily continue hydralazine 100 mg 3 times a day #4 lower extremity edema. Continue Aldactone 25 mg nightly, Lasix 40 mg twice daily. #5 BPH continue Flomax 0.4 mg daily at bedtime. 6. Obstructive sleep apnea on CPAP with insomnia patient takes Restoril and Benadryl at home to help with sleep. Would require another sleep aid. We can add melatonin 10 mg in addition to help with the sleep #7 GI prophylaxis with Protonix 40 mg by mouth daily #8 DVT prophylaxis with heparin hold morning dose pack to the surgery #9 CODE STATUS full code 10. Moderately severe COPD, not in exacerbation. 11. Acute kidney injury. Improved after IV fluids. Discharge plan: [facility] for subacute rehab Impression and plan of care have been directed as dictated by the signing physician. Raysa Rossi nurse practitioner acting as scribe for signing physician.
== END 2017-09-24 13:59 | DRG 470 ==
LOC: EC 10:58 → 3SUR 14:35 → 4MS4W 16:23
PROVIDERS: ADMIT Orthopaedic Surgery; ATTEND Orthopaedic Surgery
PROC: 30233N0 Transfusion of Autologous Red Blood Cells into Peripheral Vein, Percutaneous Approach (ICD-10-PCS; 2017-09-21)
PROC: 0SRC06A Replacement of Right Knee Joint with Oxidized Zirconium on Polyethylene Synthetic Substitute, Uncemented, Open Approach (ICD-10-PCS; principal; 2017-09-21 14:30)
DX: S72.051A Unspecified fracture of head of right femur, initial encounter for closed fracture (principal); M87.9 Osteonecrosis, unspecified; G95.20 Unspecified cord compression; J96.10 Chronic respiratory failure, unspecified whether with hypoxia or hypercapnia; M87.851 Other osteonecrosis, right femur; N17.9 Acute kidney failure, unspecified; J98.11 Atelectasis; J44.9 Chronic obstructive pulmonary disease, unspecified; D50.0 Iron deficiency anemia secondary to blood loss (chronic); M16.11 Unilateral primary osteoarthritis, right hip; M89.751 Major osseous defect, right pelvic region and thigh; E87.6 Hypokalemia; I10 Essential (primary) hypertension; I71.4 Abdominal aortic aneurysm, without rupture; G47.00 Insomnia, unspecified; N40.0 Benign prostatic hyperplasia without lower urinary tract symptoms; I83.90 Asymptomatic varicose veins of unspecified lower extremity; K21.9 Gastro-esophageal reflux disease without esophagitis; H91.90 Unspecified hearing loss, unspecified ear; E78.5 Hyperlipidemia, unspecified; G47.33 Obstructive sleep apnea (adult) (pediatric); G89.29 Other chronic pain; M54.5 Low back pain; M81.0 Age-related osteoporosis without current pathological fracture; I73.9 Peripheral vascular disease, unspecified; R32 Unspecified urinary incontinence; M10.9 Gout, unspecified; Z79.51 Long term (current) use of inhaled steroids; Z79.52 Long term (current) use of systemic steroids; Z79.899 Other long term (current) drug therapy; Z90.49 Acquired absence of other specified parts of digestive tract; Z92.3 Personal history of irradiation; Z86.14 Personal history of Methicillin resistant Staphylococcus aureus infection; Z89.421 Acquired absence of other right toe(s); Z87.891 Personal history of nicotine dependence; Z85.21 Personal history of malignant neoplasm of larynx; Z96.652 Presence of left artificial knee joint; Z92.21 Personal history of antineoplastic chemotherapy; Z99.3 Dependence on wheelchair; Z88.1 Allergy status to other antibiotic agents; Z82.49 Family history of ischemic heart disease and other diseases of the circulatory system; Z80.0 Family history of malignant neoplasm of digestive organs; W19.XXXA Unspecified fall, initial encounter; Y92.009 Unspecified place in unspecified non-institutional (private) residence as the place of occurrence of the external cause
CPT/HCPCS: 36415; 71046; 72100; 73501; 73502; 80048; 80053; 81003; 82550; 82553; 83605; 83735; 83880; 84443; 84484; 85025; 85027; 85610; 85730; 86850; 86900; 86901; 93005; 93306; 94640; 94760; 96361; 96374; 99285